=== PATIENT | female | born 1980 | race Caucasian/White ===

== ENCOUNTER 2018-06-07 13:21 | Emergency (ER) | payer OTHER, MEDICAID, SELFPAY ==
[2018-06-07 13:25] VITALS: BP 121/71; PULSE 102; RESP 20; TEMP 36.6; O2SAT 100; BMI 22.3
--- NOTE | 2018-06-07 13:35 | ED.MEDCLEAR ---
HPI - Medical Clearance <ALESSANDRA Rae - Last Filed: 06/07/18 21:34> General Chief complaint: Medical Clearance Stated complaint: NEEDS MEDICAL CLEARANCE FOR DETOX Time Seen by Provider: 06/07/18 13:35 Source: patient Mode of arrival: ambulatory Limitations: no limitations History of Present Illness HPI Narrative: 38-year-old female with history of heroin and meth abuse here for concern of getting medical clearance due for a detox facility in [place]. She reports that she has a bed available and just needs medical clearance. She states the last time she used heroin was last night. She uses methamphetamine day before yes today. She denies any alcohol use. She is an everyday smoker. She denies any medical concerns except for that she may be exposed to Trichomonas from a sexual partner. She reports that she has had whitish vaginal discharge over the past several days. She denies any abdominal pain. No flank pain. No urinary symptoms. She denies any other concerns or complaints this time. She denies any suicidal ideation or homicidal ideation. Home Medications Medication Instructions Recorded Confirmed hydrocodone-acetaminophen 1 tab PO BID #0 11/08/15 sumatriptan succinate 100 mg PO PRN PRN #0 tab 11/08/15 Previous Rx's Medication Instructions Recorded hydroxyzine pamoate [Vistaril] 25 mg PO HS #60 cap 11/08/15 ondansetron HCl 4 mg PO Q8HP PRN #30 tab 11/08/15 risperidone [Risperdal] 1 mg PO QDAY #30 tab 11/08/15 valacyclovir 1,000 mg PO QDAY #30 tab 11/08/15 Allergies Allergy/AdvReac Type Severity Reaction Status Date / Time buspirone [From BUSPAR] Allergy Unknown Unverified 07/23/17 12:35 venlafaxine [From EFFEXOR] Allergy Unknown Unverified 07/23/17 12:35 Review of Systems <ALESSANDRA Rae - Last Filed: 06/07/18 21:34> Review of Systems desires medical clearance for substance abuse detox treatment Constitutional Denies chills, Denies fever(s), Denies lethargy and Denies weakness Eyes Denies change in vision, Denies eye discharge, Denies irritation and Denies loss of vision ENT Ears, Nose, Mouth, and Throat: Denies change in voice, Denies neck pain and Denies sore throat Cardiovascular Denies chest pain, Denies irregular heart rhythm, Denies lightheadedness, Denies palpitations, Denies dyspnea, Denies dyspnea on exertion and Denies orthopnea Respiratory Denies cough, Denies dyspnea, Denies dyspnea on exertion and Denies wheezing Gastrointestinal Gastrointestinal: Denies abdominal pain, Denies change in bowel habits, Denies diarrhea, Denies nausea and Denies vomiting Genitourinary Reports vaginal discharge Comments: Whitish vaginal discharge and possibl Musculoskeletal Denies neck pain Integumentary/Breasts Denies pruritus, Denies erythema, Denies rash and Denies wounds Neurologic Denies confusion, Denies loss of vision and Denies weakness Psychiatric Denies anxiety, Denies confusion, Denies depression, Denies homicidal ideation and Denies suicidal ideation Endocrine Denies palpitations Hematologic/Lymphatic Denies easy bruising Allergic/Immunologic Denies wheezing PFSH <ALESSANDRA Rae - Last Filed: 06/07/18 21:34> Family History Grandfather Age: 78 Cancer Hypertension High cholesterol Grandmother Age: 78 Cancer Hypertension Stroke Grandfather Cancer Hypertension Grandmother Cancer Social History Smoking Status: Current every day smoker Family History Grandfather Age: 78 Cancer Hypertension High cholesterol Grandmother Age: 78 Cancer Hypertension Stroke Grandfather Cancer Hypertension Grandmother Cancer Social History Smoking Status: Current every day smoker Exam <ALESSANDRA Rae - Last Filed: 06/07/18 21:34> Initial Vital Signs Initial Vital Signs: Vital Signs Temperature 97.8 F 06/07/18 13:25 Pulse Rate 102 H 06/07/18 13:25 Respiratory Rate 20 06/07/18 13:25 Blood Pressure 121/71 06/07/18 13:25 Pulse Oximetry 100 06/07/18 13:25 Const General: cooperative and well developed Nutritional Appearance: well nourished Orientation: alert, awake, oriented x3 and not confused HENMT Mouth: oral mucosae normal and moist mucous membranes Eyes Eyelids: eyelids normal Conjunctivae: conjunctivae normal Sclera: sclerae normal Pupils: PERRL EOM: EOM intact bilaterally Resp Effort & Inspection: normal respiratory effort, able to speak in complete sentences, no respiratory distress and no use of accessory muscles Auscultation: clear to auscultation bilaterally, no rales, no rhonchi and no wheezes Cardio Rate: regular rate Rhythm: regular rhythm Heart Sounds: no click, no gallops, no murmurs and no rubs Pulses: normal peripheral pulses General: No CVA tenderness Speculum Exam - Vagina: abnormal vaginal discharge white Speculum Exam - Cervix: normal appearance of the cervix and closed cervix Skin General: no rashes or lesions noted, No jaundice and No petechiae Neuro General: alert, oriented x3, gait normal and no focal motor deficits Speech: speech normal <Wendy Garcia DO - Last Filed: 06/08/18 07:56> Initial Vital Signs Initial Vital Signs: Vital Signs Temperature 97.8 F 06/07/18 13:25 Pulse Rate 102 H 06/07/18 13:25 Respiratory Rate 20 06/07/18 13:25 Blood Pressure 121/71 06/07/18 13:25 Pulse Oximetry 100 06/07/18 13:25 MDM - Medical Clearance <ALESSANDRA Rae - Last Filed: 06/07/18 21:34> Lab Data Result diagrams: 06/07/18 13:48 06/07/18 13:48 Lab Results 06/07/18 06/07/18 06/07/18 Range/Units 13:35 13:35 13:48 WBC 11.8 H (4.5-11.0) X10^3/uL RBC 4.73 (4.0-5.2) X10^6/uL Hgb 13.9 (12.0-16.0) g/dL Hct 41.8 (36-46) % MCV 88.4 (80-100) fL MCH 29.5 (26-34) PG MCHC 33.4 (30-36) % RDW 14.0 (11.6-14.8) % Plt Count 264 (150-400) X10^3/uL Neut % (Auto) 70.3 (50-75) % Lymph % (Auto) 19.8 L (25-40) % [place] % (Auto) 4.3 (3-14) % Eos % (Auto) 4.6 H (2-4) % Baso % (Auto) 1.0 (0-2) % Neut # (Auto) 8300 H (1836-3636) /uL Lymph # (Auto) 2300 (1576-1480) /uL [place] # (Auto) 500 (0-900) /uL Eos # (Auto) 500 H (0-450) /uL Baso # (Auto) 100 (0-100) /uL Sodium (137-145) mmol/L Potassium (3.4-5.1) mmol/L Chloride (98-107) mmol/L Carbon Dioxide (22-32) mmol/L BUN (7-17) mg/dL Creatinine (0.52-1.04) mg/dL Estimated GFR (>60) mL/min BUN/Creatinine Ratio (6-22) Glucose (70-100) mg/dL Calcium (8.4-10.2) mg/dL Total Bilirubin (0.2-1.3) mg/dL AST (14-36) IU/L ALT (9-52) IU/L Alkaline Phosphatase (38-126) U/L Total Protein (6.3-8.2) g/dL Albumin (3.5-5.0) g/dL Globulin (1.7-4.1) g/dL Albumin/Globulin Ratio (1.0-2.8) Urine Color Yellow Urine Appearance Cloudy Urine pH 5.5 (4.5-8.0) Ur Specific [place] 1.025 (1.000-1.035) Urine Protein Trace H (Negative) Urine Glucose (UA) Trace H (Negative) g/dL Urine Ketones Negative (NEGATIVE) Urine Occult Blood Trace-intact (Negative) Urine Nitrate Negative (Negative) Urine Bilirubin Negative (NEGATIVE) Urine Urobilinogen 1.0 (0.2) E.U./dL Ur Leukocyte Esterase 1+ H (NEGATIVE) Urine RBC 1-5/hpf (0-5/HPF) Urine WBC 5-10/hpf H (0-5/HPF) Ur Squamous Epith Cells 10-30 /hpf H Urine Bacteria Few (2-10) H (None) Urine Mucus 1+ H (Negative) Ur Culture Indicated? Cult not indicated Urine Opiates Screen Positive H (Negative) Ur Oxycodone Screen Positive H (Negative) Urine Methadone Screen Negative (Negative) Ur Barbiturates Screen Negative (Negative) U Tricyclic Antidepress Negative (Negative) Ur Phencyclidine Scrn Negative (Negative) Ur Amphetamines Screen Positive H (Negative) U Methamphetamines Scrn Positive H (Negative) Ur MDMA Scrn (Ecstasy) Negative (Negative) U Benzodiazepines Scrn Negative (Negative) Urine Cocaine Screen Negative (Negative) U Marijuana (THC) Screen Positive H (Negative) 06/07/18 Range/Units 13:48 WBC (4.5-11.0) X10^3/uL RBC (4.0-5.2) X10^6/uL Hgb (12.0-16.0) g/dL Hct (36-46) % MCV (80-100) fL MCH (26-34) PG MCHC (30-36) % RDW (11.6-14.8) % Plt Count (150-400) X10^3/uL Neut % (Auto) (50-75) % Lymph % (Auto) (25-40) % [place] % (Auto) (3-14) % Eos % (Auto) (2-4) % Baso % (Auto) (0-2) % Neut # (Auto) (2318-5016) /uL Lymph # (Auto) (2253-7086) /uL [place] # (Auto) (0-900) /uL Eos # (Auto) (0-450) /uL Baso # (Auto) (0-100) /uL Sodium 138 (137-145) mmol/L Potassium 3.5 (3.4-5.1) mmol/L Chloride 99 (98-107) mmol/L Carbon Dioxide 29 (22-32) mmol/L BUN 13 (7-17) mg/dL Creatinine 0.60 (0.52-1.04) mg/dL Estimated GFR > 60.0 (>60) mL/min BUN/Creatinine Ratio 21.7 (6-22) Glucose 113 H (70-100) mg/dL Calcium 9.2 (8.4-10.2) mg/dL Total Bilirubin 0.4 (0.2-1.3) mg/dL AST 193 H (14-36) IU/L ALT 237 H (9-52) IU/L Alkaline Phosphatase 113 (38-126) U/L Total Protein 8.0 (6.3-8.2) g/dL Albumin 4.2 (3.5-5.0) g/dL Globulin 3.8 (1.7-4.1) g/dL Albumin/Globulin Ratio 1.1 (1.0-2.8) Urine Color Urine Appearance Urine pH (4.5-8.0) Ur Specific [place] (1.000-1.035) Urine Protein (Negative) Urine Glucose (UA) (Negative) g/dL Urine Ketones (NEGATIVE) Urine Occult Blood (Negative) Urine Nitrate (Negative) Urine Bilirubin (NEGATIVE) Urine Urobilinogen (0.2) E.U./dL Ur Leukocyte Esterase (NEGATIVE) Urine RBC (0-5/HPF) Urine WBC (0-5/HPF) Ur Squamous Epith Cells Urine Bacteria (None) Urine Mucus (Negative) Ur Culture Indicated? Urine Opiates Screen (Negative) Ur Oxycodone Screen (Negative) Urine Methadone Screen (Negative) Ur Barbiturates Screen (Negative) U Tricyclic Antidepress (Negative) Ur Phencyclidine Scrn (Negative) Ur Amphetamines Screen (Negative) U Methamphetamines Scrn (Negative) Ur MDMA Scrn (Ecstasy) (Negative) U Benzodiazepines Scrn (Negative) Urine Cocaine Screen (Negative) U Marijuana (THC) Screen (Negative) Point of Care Testing Breathalizer 0 MDM Narrative Medical decision making narrative: CBC shows mildly elevated white count of 11.8 K and neutrophils. Chem panel shows elevated AST ALT. will have patient follow up with primary care provider when done with detox for further evaluation of her elevated liver enzymes. Urine tox shows positive for opiates methamphetamine and marijuana. breathalyzer for ETOH was 0. pelvic exam shows whitish discharge and no adnexal tenderness. Wet prep was positive for Trichomonas. GC and chlamydia are pending. She is empirically treated with azithromycin, Rocephin and metronidazole. She is medically cleared for detox treatment. <Wendy Garcia, DO - Last Filed: 06/08/18 07:56> Lab Data Lab Results 06/07/18 06/07/18 06/07/18 Range/Units 13:35 13:35 13:48 WBC 11.8 H (4.5-11.0) X10^3/uL RBC 4.73 (4.0-5.2) X10^6/uL Hgb 13.9 (12.0-16.0) g/dL Hct 41.8 (36-46) % MCV 88.4 (80-100) fL MCH 29.5 (26-34) PG MCHC 33.4 (30-36) % RDW 14.0 (11.6-14.8) % Plt Count 264 (150-400) X10^3/uL Neut % (Auto) 70.3 (50-75) % Lymph % (Auto) 19.8 L (25-40) % [place] % (Auto) 4.3 (3-14) % Eos % (Auto) 4.6 H (2-4) % Baso % (Auto) 1.0 (0-2) % Neut # (Auto) 8300 H (4127-2992) /uL Lymph # (Auto) 2300 (9441-3074) /uL [place] # (Auto) 500 (0-900) /uL Eos # (Auto) 500 H (0-450) /uL Baso # (Auto) 100 (0-100) /uL Sodium (137-145) mmol/L Potassium (3.4-5.1) mmol/L Chloride (98-107) mmol/L Carbon Dioxide (22-32) mmol/L BUN (7-17) mg/dL Creatinine (0.52-1.04) mg/dL Estimated GFR (>60) mL/min BUN/Creatinine Ratio (6-22) Glucose (70-100) mg/dL Calcium (8.4-10.2) mg/dL Total Bilirubin (0.2-1.3) mg/dL AST (14-36) IU/L ALT (9-52) IU/L Alkaline Phosphatase (38-126) U/L Total Protein (6.3-8.2) g/dL Albumin (3.5-5.0) g/dL Globulin (1.7-4.1) g/dL Albumin/Globulin Ratio (1.0-2.8) Urine Color Yellow Urine Appearance Cloudy Urine pH 5.5 (4.5-8.0) Ur Specific [place] 1.025 (1.000-1.035) Urine Protein Trace H (Negative) Urine Glucose (UA) Trace H (Negative) g/dL Urine Ketones Negative (NEGATIVE) Urine Occult Blood Trace-intact (Negative) Urine Nitrate Negative (Negative) Urine Bilirubin Negative (NEGATIVE) Urine Urobilinogen 1.0 (0.2) E.U./dL Ur Leukocyte Esterase 1+ H (NEGATIVE) Urine RBC 1-5/hpf (0-5/HPF) Urine WBC 5-10/hpf H (0-5/HPF) Ur Squamous Epith Cells 10-30 /hpf H Urine Bacteria Few (2-10) H (None) Urine Mucus 1+ H (Negative) Ur Culture Indicated? Cult not indicated Urine Opiates Screen Positive H (Negative) Ur Oxycodone Screen Positive H (Negative) Urine Methadone Screen Negative (Negative) Ur Barbiturates Screen Negative (Negative) U Tricyclic Antidepress Negative (Negative) Ur Phencyclidine Scrn Negative (Negative) Ur Amphetamines Screen Positive H (Negative) U Methamphetamines Scrn Positive H (Negative) Ur MDMA Scrn (Ecstasy) Negative (Negative) U Benzodiazepines Scrn Negative (Negative) Urine Cocaine Screen Negative (Negative) U Marijuana (THC) Screen Positive H (Negative) 06/07/18 Range/Units 13:48 WBC (4.5-11.0) X10^3/uL RBC (4.0-5.2) X10^6/uL Hgb (12.0-16.0) g/dL Hct (36-46) % MCV (80-100) fL MCH (26-34) PG MCHC (30-36) % RDW (11.6-14.8) % Plt Count (150-400) X10^3/uL Neut % (Auto) (50-75) % Lymph % (Auto) (25-40) % [place] % (Auto) (3-14) % Eos % (Auto) (2-4) % Baso % (Auto) (0-2) % Neut # (Auto) (8670-6692) /uL Lymph # (Auto) (8519-6939) /uL [place] # (Auto) (0-900) /uL Eos # (Auto) (0-450) /uL Baso # (Auto) (0-100) /uL Sodium 138 (137-145) mmol/L Potassium 3.5 (3.4-5.1) mmol/L Chloride 99 (98-107) mmol/L Carbon Dioxide 29 (22-32) mmol/L BUN 13 (7-17) mg/dL Creatinine 0.60 (0.52-1.04) mg/dL Estimated GFR > 60.0 (>60) mL/min BUN/Creatinine Ratio 21.7 (6-22) Glucose 113 H (70-100) mg/dL Calcium 9.2 (8.4-10.2) mg/dL Total Bilirubin 0.4 (0.2-1.3) mg/dL AST 193 H (14-36) IU/L ALT 237 H (9-52) IU/L Alkaline Phosphatase 113 (38-126) U/L Total Protein 8.0 (6.3-8.2) g/dL Albumin 4.2 (3.5-5.0) g/dL Globulin 3.8 (1.7-4.1) g/dL Albumin/Globulin Ratio 1.1 (1.0-2.8) Urine Color Urine Appearance Urine pH (4.5-8.0) Ur Specific [place] (1.000-1.035) Urine Protein (Negative) Urine Glucose (UA) (Negative) g/dL Urine Ketones (NEGATIVE) Urine Occult Blood (Negative) Urine Nitrate (Negative) Urine Bilirubin (NEGATIVE) Urine Urobilinogen (0.2) E.U./dL Ur Leukocyte Esterase (NEGATIVE) Urine RBC (0-5/HPF) Urine WBC (0-5/HPF) Ur Squamous Epith Cells Urine Bacteria (None) Urine Mucus (Negative) Ur Culture Indicated? Urine Opiates Screen (Negative) Ur Oxycodone Screen (Negative) Urine Methadone Screen (Negative) Ur Barbiturates Screen (Negative) U Tricyclic Antidepress (Negative) Ur Phencyclidine Scrn (Negative) Ur Amphetamines Screen (Negative) U Methamphetamines Scrn (Negative) Ur MDMA Scrn (Ecstasy) (Negative) U Benzodiazepines Scrn (Negative) Urine Cocaine Screen (Negative) U Marijuana (THC) Screen (Negative) Point of Care Testing Breathalizer 0 Discharge Plan Departure Patient Disposition: Home Clinical Impression: Medical clearance for psychiatric admission, Trichomonas vaginitis Discharge Date/Time: 06/07/18 16:05 Interventions: ED Discharge Assessment Last Done: 06/07/18 16:05 Instructions: Facts About Sexually Transmitted Infections Activity Restrictions/Additional Instructions: laboratory results show mildly elevated white count today and also neutrophils this may be due to virus or even the Trichomonas as Trichomonas was positive today. You were treated empirically for Trichomonas and chlamydia/gonorrhea. Chlamydia and gonorrhea results are pending. laboratory results indicated elevated liver enzymes today Otherwise laboratory results today were unremarkable. You are medically cleared for medical detox treatment. Follow up with primary care provider When completed detox for further evaluation of elevated liver enzymes. For any worsening symptoms return emergency room. Prescriptions: No Action sumatriptan succinate 100 MG tablet 100 mg PO PRN PRNQty: 0 RF: 0 hydrocodone-acetaminophen 5 MG/325 MG tablet 1 tab PO BID Qty: 0 RF: 0 valacyclovir 1,000 MG tablet 1,000 mg PO QDAY Qty: 30 RF: 3 ondansetron HCl 4 MG tablet 4 mg PO Q8HP PRNQty: 30 RF: 1 risperidone [Risperdal] 1 MG tablet 1 mg PO QDAY Qty: 30 RF: 3 hydroxyzine pamoate [Vistaril] 25 MG capsule 25 mg PO HS Qty: 60 RF: 3 Referrals: [facility] [Provider Group] <Wendy Garcia DO - Last Filed: 06/08/18 07:56> Cosign ED Attending Jacque Attestation: I was immediately available in the department for consultation. Documentation has been reviewed. I agree with assessment and plan.
[2018-06-07 14:03] LABS: Add Manual Diff / Slide Review NO; Basophils Absolute Auto 100 /uL (0-100); Eosinophils Absolute Auto 500 /uL (0-450); Eosinophils Percent Auto 4.6 % (2-4); Hematocrit 41.8 % (36-46); Hemoglobin 13.9 g/dL (12.0-16.0); Lymphocytes Absolute Auto 2300 /uL (1100-4500); Lymphocytes Percent Auto 19.8 % (25-40); Mean Corpuscular HGB Conc 33.4 % (30-36); Mean Corpuscular Hemoglobin 29.5 PG (26-34); Mean Corpuscular Volume 88.4 fL (80-100); Monocytes Absolute Auto 500 /uL (0-900); Monocytes Percent Auto 4.3 % (3-14); Neutrophils Absolute Auto 8300 /uL (1500-7000); Neutrophils Percent Auto 70.3 % (50-75); Platelet Count 264 X10^3/uL (150-400); Red Blood Cell Count 4.73 X10^6/uL (4.0-5.2); White Blood Cell Count 11.8 X10^3/uL (4.5-11.0)
[2018-06-07 14:08] LABS: Alanine Aminotransferase 237 IU/L (9-52); Albumin 4.2 g/dL (3.5-5.0); Albumin Globulin Ratio 1.1 (1.0-2.8); Alkaline Phosphatase 113 U/L (38-126); Aspartate Aminotransferase 193 IU/L (14-36); BUN Creatinine Ratio 21.7 (6-22); Bilirubin Total 0.4 mg/dL (0.2-1.3); Blood Urea Nitrogen 13 mg/dL (7-17); Calcium 9.2 mg/dL (8.4-10.2); Carbon Dioxide 29 mmol/L (22-32); Chloride 99 mmol/L (98-107); Estimated Glomerular Filt Rate > 60.0 mL/min (>60); Globulin 3.8 g/dL (1.7-4.1); Glucose 113 mg/dL (70-100); HEMOLYSIS < 15 (0-50); Potassium 3.5 mmol/L (3.4-5.1); Sodium 138 mmol/L (137-145)
[2018-06-07 14:55] LABS: Appearance Urine UA CLOUDY; Bilirubin Urine UA NEGATIVE (NEGATIVE); Color Urine UA YELLOW; Glucose Urine UA TRACE g/dL (Negative); Ketones Urine UA NEGATIVE (NEGATIVE); Leukocyte Esterase Urine UA 1+ (NEGATIVE); Nitrite Urine UA NEGATIVE (Negative); Occult Blood Urine UA TRACE-INTACT (Negative); Protein Urine UA TRACE (Negative); Specific Gravity Urine UA 1.025 (1.000-1.035); pH Urine UA 5.5 (4.5-8.0)
[2018-06-07 14:59] LABS: RBC Urine 1-5/HPF (0-5/HPF); Squamous Epithelial Cell Urine 10-30 /HPF; WBC Urine 5-10/HPF (0-5/HPF)
[2018-06-07 15:00] LABS: Bacteria Urine Few (2-10); Culture Indicated Urine Cult Not Indicated; Mucus Urine 1+ (Negative)
[2018-06-07 15:01] LABS: Urine Amphetamines Positive (Negative); Urine Barbiturates Negative (Negative); Urine Benzodiazepines Negative (Negative); Urine Cocaine Negative (Negative); Urine MDMA Negative (Negative); Urine Methadone Negative (Negative); Urine Methamphetamines Positive (Negative); Urine Morphine/Opi cutoff 2000 Positive (Negative); Urine Oxycodone Positive (Negative); Urine Phencyclidine Negative (Negative); Urine Tetrahydrocannabinol Positive (Negative); Urine Tricyclic Antidepressant Negative (Negative)
[2018-06-07] MEDS: AZITHROMYCIN 250 MG TABLET 1000 MG PO (15:59)
[2018-06-07] MEDS: cefTRIAXone 500 MG VIAL 250 MG IM (16:00)
[2018-06-07] MEDS: metroNIDAZOLE 500 MG TABLET 2000 MG PO (16:01)
[2018-06-07 16:05] VITALS: BP 114/70; PULSE 95; RESP 20; O2SAT 99
== END 2018-06-07 16:05 | disposition home or self-care (01) ==
PROVIDERS: Emergency Provider Nurse Practitioner Family
DX: A59.01 Trichomonal vulvovaginitis (principal); Z00.8 Encounter for other general examination
CPT/HCPCS: 80053; 80305; 81001; 82075; 85025; 87070; 87077; 87205; 87210; 87491; 87591; 96372; 99283; J0696

== ENCOUNTER 2018-08-27 11:05 | Observation (INO) | payer OTHER, MEDICAID, SELFPAY ==
[2018-08-27 11:10] VITALS: BP 105/68; PULSE 112; RESP 18; TEMP 37; O2SAT 96
--- NOTE | 2018-08-27 11:39 | ED.SKABFB ---
HPI - Skin/Abscess/Foreign Bdy General Chief complaint: Skin/Abscess/Foreign Body Stated complaint: SWELLING IN ARM AND FACE Time Seen by Provider: 08/27/18 11:35 Source: patient Mode of arrival: ambulatory Limitations: no limitations History of Present Illness HPI narrative: Patient is a 38-year-old female who presents with left-sided facial swelling and left abscess on her arm. She states it started 3 days ago. She has a history of IVDA but states she has not used in 3 months. She was helping somebody move and thinks there were spiders. The abscess on her left arm started draining this morning. The 1 on her face she says started off as a pimple that she popped. Actually does not have significant erythema on her face is more swelling. MD complaint: abscess/boil Location: face and LUE Severity: moderate Relieving factors: none Exacerbating factors: none Context: IVDA (Clean for 3 months-per patient) Related Data Home Medications Medication Instructions Recorded Confirmed bupropion HCl 75 mg PO DAILY 08/27/18 08/27/18 doxepin 100 mg PO QPM 08/27/18 08/27/18 Allergies Allergy/AdvReac Type Severity Reaction Status Date / Time buspirone [From BUSPAR] Allergy Unknown Unverified 07/23/17 12:35 venlafaxine [From EFFEXOR] Allergy Unknown Unverified 07/23/17 12:35 Review of Systems Review of Systems ROS Unobtainable: All systems reviewed & are unremarkable except as noted in HPI and below Eyes Denies change in vision, Denies eye discharge, Denies irritation and Denies loss of vision ENT Ears, Nose, Mouth, and Throat: Reports as per HPI, Denies lip swelling, Denies throat swelling and Denies tongue swelling Cardiovascular Denies chest pain, Denies irregular heart rhythm, Denies lightheadedness, Denies palpitations, Denies dyspnea, Denies dyspnea on exertion and Denies orthopnea Respiratory Denies cough, Denies dyspnea, Denies dyspnea on exertion and Denies wheezing Gastrointestinal Gastrointestinal: Denies abdominal pain, Denies change in bowel habits, Denies diarrhea, Denies nausea and Denies vomiting Genitourinary Denies hematuria, Denies flank pain, Denies urinary incontinence and Denies urinary urgency Musculoskeletal Denies back pain, Denies muscle weakness, Denies numbness and Denies tingling Integumentary/Breasts Denies pruritus, Reports erythema, Denies rash, Reports skin swelling (Left cheek) and Reports wounds Neurologic Denies loss of vision, Denies numbness and Denies tingling Endocrine Denies palpitations Allergic/Immunologic Denies lip swelling, Denies throat swelling, Denies tongue swelling and Denies wheezing FORMERLY [facility] Medical History 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) Family History (Updated 11/07/15 @ 00:00 by Conversion Provider) Grandfather Age: 78 Cancer Hypertension High cholesterol Grandmother Age: 78 Cancer Hypertension Stroke Grandfather Cancer Hypertension Grandmother Cancer Social History (Updated 08/27/18 @ 11:46 by Wendy Garcia DO) Smoking Status: Current every day smoker substance use type: former substance user, heroin, IV drugs and methamphetamine Family History Grandfather Age: 78 Cancer Hypertension High cholesterol Grandmother Age: 78 Cancer Hypertension Stroke Grandfather Cancer Hypertension Grandmother Cancer Social History household members: friend(s) Smoking Status: Current every day smoker substance use type: former substance user, heroin, IV drugs and methamphetamine Exam Initial Vital Signs Initial Vital Signs: Vital Signs Temperature 98.6 F 08/27/18 11:10 Pulse Rate 112 H 08/27/18 11:10 Respiratory Rate 18 08/27/18 11:10 Blood Pressure 105/68 08/27/18 11:10 Pulse Oximetry 96 08/27/18 11:10 GENERAL: Well-appearing, well-nourished and in no acute distress. HEENT: Head atraumatic,EOMI, pupils reactive, 1 cm area of erythema on left under chin. But significant swelling of left cheek no erythema CARDIOVASCULAR: Regular rate and rhythm without murmurs, rubs or gallops. RESPIRATORY: Breath sounds equal bilaterally, no wheezes rales or rhonchi. ABDOMEN: Soft, nontender. Normoactive bowel sounds all 4 quadrants. No guarding or rebound. EXTREMITIES: Normal range of motion, no clubbing or edema. Neurovascularly intact NEUROLOGICAL: Alert and oriented x4.Normal gait and speech. Cranial nerves II through XII grossly intact. SKIN: Left forearm abscess 2 cm x 2 cm without 1 cm induration no streaking gross pus. Multiple track gray mostly on right arm Skin Adult Head Chin: 1. Erythema no significant fluctuation 2. Swelling no erythema Procedures Abscess I/D Site: upper extremity Side (if applicable): left Local Anesthetic: lidocaine 1% Amount of anesthesia used (mL): 3 Technique: incised with #11 blade Amount of fluid expressed (mL): 1 Irrigation: No Packing used?: none Complications: pain and bleeding Course Orders Ordered: ED Orders 08/27/18 11:40 CT facial bones w con Stat 08/27/18 11:42 Complete Blood Count AUTO DIFF Stat Comprehensive Metabolic Panel Stat Lactate (Lactic Acid) Stat Procalcitonin Stat 08/27/18 13:20 Blood Culture Stat 08/27/18 14:19 Wound Culture and Gram Stain Stat Wound Culture and Gram Stain Stat 08/27/18 15:12 Consult to Pastoral Services Routine Sodium Chloride (Normal Saline 0.9%) 1,000 mls @ 200 mls/hr IV CONT DEANNA Last Admin: 08/27/18 12:02 Dose: 200 mls/hr Discontinued Medications Vancomycin HCl/Dextrose (Vancomycin) 1,000 mg in 200 mls @ 200 mls/hr IV NOW ONE Stop: 08/27/18 14:02 Last Admin: 08/27/18 13:51 Dose: 200 mls/hr Ampicillin Sodium/Sulbactam (Sodium 3 gm/ Sodium Chloride) 100 mls @ 100 mls/hr IV NOW ONE Stop: 08/27/18 13:43 Ketorolac Tromethamine (Toradol) 30 mg IV NOW ONE Stop: 08/27/18 13:46 Last Admin: 08/27/18 13:52 Dose: 30 mg Vital Signs - 8 hr 08/27/18 11:10 08/27/18 12:11 08/27/18 13:30 Temperature 98.6 F Pulse Rate 112 H 88 92 H Respiratory Rate 18 14 23 Blood Pressure 105/68 Blood Pressure [Right Arm] 100/66 105/66 Pulse Oximetry 96 97 99 08/27/18 14:04 08/27/18 14:48 Temperature 97.8 F Pulse Rate 87 86 Respiratory Rate 23 16 Blood Pressure 108/66 Blood Pressure [Right Arm] 114/72 Pulse Oximetry 100 99 MDM - Skin/Abscess/Foreign Bdy Lab Data Attestation: I reviewed the patient's lab results. Result diagrams: 08/27/18 11:42 08/27/18 11:42 Lab Results 08/27/18 08/27/18 08/27/18 Range/Units 11:42 11:42 11:42 WBC 10.3 (4.5-11.0) X10^3/uL RBC 4.69 (4.0-5.2) X10^6/uL Hgb 13.9 (12.0-16.0) g/dL Hct 41.2 (36-46) % MCV 87.8 (80-100) fL MCH 29.7 (26-34) PG MCHC 33.8 (30-36) % RDW 13.5 (11.6-14.8) % Plt Count 250 (150-400) X10^3/uL Neut % (Auto) 79.1 H (50-75) % Lymph % (Auto) 11.8 L (25-40) % [place] % (Auto) 7.5 (3-14) % Eos % (Auto) 1.2 L (2-4) % Baso % (Auto) 0.4 (0-2) % Neut # (Auto) 8100 H (9384-7828) /uL Lymph # (Auto) 1200 (6886-6508) /uL [place] # (Auto) 800 (0-900) /uL Eos # (Auto) 100 (0-450) /uL Baso # (Auto) 0 (0-100) /uL Sodium 134 L (137-145) mmol/L Potassium 3.9 (3.4-5.1) mmol/L Chloride 95 L (98-107) mmol/L Carbon Dioxide 31 (22-32) mmol/L BUN 9 (7-17) mg/dL Creatinine 0.50 L (0.52-1.04) mg/dL Estimated GFR > 60.0 (>60) mL/min BUN/Creatinine Ratio 18.0 (6-22) Glucose 110 H (70-100) mg/dL Lactate (0.7-2.1) mmol/L Calcium 9.0 (8.4-10.2) mg/dL Total Bilirubin 1.3 (0.2-1.3) mg/dL AST 119 H (14-36) IU/L ALT 195 H (9-52) IU/L Alkaline Phosphatase 90 (38-126) U/L Total Protein 7.2 (6.3-8.2) g/dL Albumin 3.8 (3.5-5.0) g/dL Globulin 3.4 (1.7-4.1) g/dL Albumin/Globulin Ratio 1.1 (1.0-2.8) Procalcitonin < 0.05 (<0.5) ng/mL 08/27/18 Range/Units 11:42 WBC (4.5-11.0) X10^3/uL RBC (4.0-5.2) X10^6/uL Hgb (12.0-16.0) g/dL Hct (36-46) % MCV (80-100) fL MCH (26-34) PG MCHC (30-36) % RDW (11.6-14.8) % Plt Count (150-400) X10^3/uL Neut % (Auto) (50-75) % Lymph % (Auto) (25-40) % [place] % (Auto) (3-14) % Eos % (Auto) (2-4) % Baso % (Auto) (0-2) % Neut # (Auto) (1562-8512) /uL Lymph # (Auto) (0913-8287) /uL [place] # (Auto) (0-900) /uL Eos # (Auto) (0-450) /uL Baso # (Auto) (0-100) /uL Sodium (137-145) mmol/L Potassium (3.4-5.1) mmol/L Chloride (98-107) mmol/L Carbon Dioxide (22-32) mmol/L BUN (7-17) mg/dL Creatinine (0.52-1.04) mg/dL Estimated GFR (>60) mL/min BUN/Creatinine Ratio (6-22) Glucose (70-100) mg/dL Lactate 1.0 (0.7-2.1) mmol/L Calcium (8.4-10.2) mg/dL Total Bilirubin (0.2-1.3) mg/dL AST (14-36) IU/L ALT (9-52) IU/L Alkaline Phosphatase (38-126) U/L Total Protein (6.3-8.2) g/dL Albumin (3.5-5.0) g/dL Globulin (1.7-4.1) g/dL Albumin/Globulin Ratio (1.0-2.8) Procalcitonin (<0.5) ng/mL Imaging Data CT face: Radiologist's impression: PROCEDURE: CT FACIAL BONES W CON INDICATIONS: left facial swelling. TECHNIQUE: After the administration of intravenous contrast, 2.5 mm axial sections acquired from the mid-neck to the frontal sinuses, with coronal and sagittal reformats. For radiation dose reduction, the following was used: automated exposure control, adjustment of mA and/or kV according to patient size. COMPARISON: None. FINDINGS: Image quality: Excellent. Soft tissues: There is soft tissue edema and skin thickening involving the left pre-mandible and premaxillary area, consistent with cellulitis. No subcutaneous mass or fluid collections. Prominent sublingual/submandibular lymph nodes are likely reactive. Vascular: Visualized vascular structures appear patent throughout. Bony vascular foramina and canals appear normal. Bones: Facial bones appear intact, without fractures, erosions, or destruction. Visualized portions of the skull base and auditory canals also appear normal. Sinuses: Paranasal sinuses are aerated without fluid levels, mucosal thickening, or mucoceles. Mastoid air cells are aerated. IMPRESSION: 1. Left pre-mandible/premaxillary soft tissue edema and skin thickening consistent with cellulitis. No subcutaneous mass or fluid collections. 2. Reactive subchondral/submandibular lymphadenopathy. Dictated by: Orestes Barrera M.D. on 08/27/2018 at 12:38 MDM Narrative Medical decision making narrative: Patient has significant swelling of the left side of her face which has come on suddenly over the last 3 days. She has no airway compromise. She really has no erythema there is no abscess according to CT. She is high risk due to history of IVDA. Her left arm abscess seems already drained I did not actually get much as purulence discharge from it. Due to significant facial swelling and feel that patient needs to be admitted for IV antibiotics. She does not appear septic she has a normal lactic acid minimally elevated leukocytosis. Dr. Child accepts patient Discharge Plan Departure Patient Disposition: Admitted As Inpatient Clinical Impression: Cellulitis of face Discharge Date/Time: 08/27/18 14:39 Interventions: ED Discharge Assessment Last Done: 08/27/18 14:39 Admit Date/Time: 08/27/18 14:26 Admit Provider: Nadiya Child
[2018-08-27] MEDS: SODIUM CHLORIDE 0.9% 1,000 ML 200 ML IV ×2 (12:02→19:29)
[2018-08-27 12:03] LABS: Add Manual Diff / Slide Review NO; Basophils Absolute Auto 0 /uL (0-100); Basophils Percent Auto 0.4 % (0-2); Eosinophils Absolute Auto 100 /uL (0-450); Eosinophils Percent Auto 1.2 % (2-4); Hematocrit 41.2 % (36-46); Hemoglobin 13.9 g/dL (12.0-16.0); Lymphocytes Absolute Auto 1200 /uL (1100-4500); Lymphocytes Percent Auto 11.8 % (25-40); Mean Corpuscular HGB Conc 33.8 % (30-36); Mean Corpuscular Hemoglobin 29.7 PG (26-34); Mean Corpuscular Volume 87.8 fL (80-100); Monocytes Absolute Auto 800 /uL (0-900); Monocytes Percent Auto 7.5 % (3-14); Neutrophils Absolute Auto 8100 /uL (1500-7000); Neutrophils Percent Auto 79.1 % (50-75); Platelet Count 250 X10^3/uL (150-400); Red Blood Cell Count 4.69 X10^6/uL (4.0-5.2); Red Cell Distribution Width 13.5 % (11.6-14.8); White Blood Cell Count 10.3 X10^3/uL (4.5-11.0)
[2018-08-27 12:10] LABS: Alanine Aminotransferase 195 IU/L (9-52); Albumin 3.8 g/dL (3.5-5.0); Albumin Globulin Ratio 1.1 (1.0-2.8); Alkaline Phosphatase 90 U/L (38-126); Aspartate Aminotransferase 119 IU/L (14-36); Bilirubin Total 1.3 mg/dL (0.2-1.3); Blood Urea Nitrogen 9 mg/dL (7-17); Carbon Dioxide 31 mmol/L (22-32); Chloride 95 mmol/L (98-107); Estimated Glomerular Filt Rate > 60.0 mL/min (>60); Globulin 3.4 g/dL (1.7-4.1); Glucose 110 mg/dL (70-100); HEMOLYSIS < 15 (0-50); Potassium 3.9 mmol/L (3.4-5.1); Sodium 134 mmol/L (137-145); Total Protein 7.2 g/dL (6.3-8.2)
[2018-08-27 12:11] VITALS: BP 100/66; PULSE 88; RESP 14; O2SAT 97
[2018-08-27 12:30] LABS: Procalcitonin < 0.05 ng/mL (<0.5)
[2018-08-27 13:30] VITALS: BP 105/66; PULSE 92; RESP 23; O2SAT 99
[2018-08-27] MEDS: VANCOMYCIN 1,000 MG/200 ML FROZ.PIGGY 200 MG IV (13:51)
[2018-08-27] MEDS: KETOROLAC 60 MG/2 ML VIAL 30 MG IV (13:52)
[2018-08-27 14:04] VITALS: BP 114/72; PULSE 84; PULSE 87; RESP 20; RESP 23; O2SAT 100
[2018-08-27 14:48] VITALS: BP 108/66; PULSE 86; RESP 16; TEMP 36.6; O2SAT 99; BMI 23.1
--- NOTE | 2018-08-27 15:29 | PC.ADMIT ---
[address] Admission Note: The patient,Stacy Mary,38 y/o, was given written information regarding hospital policies, unit procedures and contact persons. Patient's smoking status: Current every day smoker. Vital Signs - 8 hr 08/27/18 11:10 08/27/18 12:11 08/27/18 13:30 Temperature 98.6 F Pulse Rate 112 H 88 92 H Respiratory Rate 18 14 23 Blood Pressure 105/68 Blood Pressure [Right Arm] 100/66 105/66 Pulse Oximetry 96 97 99 08/27/18 14:04 08/27/18 14:48 Temperature 97.8 F Pulse Rate 87 86 Respiratory Rate 23 16 Blood Pressure 108/66 Blood Pressure [Right Arm] 114/72 Pulse Oximetry 100 99 patient to unit; vss. answers questions appropriately. oriented to room. iv abx infusing; started in er. patient's mother accompanies her. slightly drowsy. oriented to call light system. report given to MARIA D Foster
[2018-08-27] MEDS: AMPICILLIN/SULBACTAM 3 GM 3 GM in SODIUM CHLORIDE 0.9% 100 ML IV (15:47)
--- NOTE | 2018-08-27 16:10 | PC.NURSE ---
Addendum entered by Kristin Caballero R.N. 08/27/18 22:52: Minimal pain relief to left forearm and left cheek/jaw per pt following administration of vicodin and tylenol. Administered 2 mg iv morphine. Pt has ice to sites intermittently. Vancomycin infusing without difficulty to right hand iv site. Awaiting collection of urine. Addendum entered by Kristin Caballero R.N. 08/27/18 19:08: Awake, alert taking diet slowly. Significant edema left jaw/cheek. Pt rates pain 7/10. Edema to left arm with dime sized open area posterior aspect. Dr. Child has removed dressing per pt statement. Cleansed area with normal saline and dried and applied small allevyn gentle border dressing to site. Original Note: Pt requests pain medications. Dr. Child in to see patient and this was addressed with .
--- NOTE | 2018-08-27 16:46 | P.HP_ITS ---
History of Present Illness Date Patient Seen: 08/27/18 Chief complaint: SWELLING IN ARM AND FACE Narrative: The patient is a 38-year-old female with a history of IV substance abuse who was in her usual state of health until about 3 days ago. The patient had a facial pimple which she expressed pus from. However the left side of her face started swelling and became tender. In addition she developed an abscess o eusebio the left forearm. She denies injecting into the forearm. She states she went in to drug rehabilitation about 6 months ago and has been clean since that time. The patient had nausea and vomiting. She denies any fever. She was seen in the emergency room where the abscess of the left arm was drained. She underwent a CT scan of the face which showed no collection of pus or drainable fluid collection. The left face was swollen and felt to be consistent with cellulitis. Patient was admitted to the hospital for further evaluation. She was given IV Vanco in the emergency department and added Unasyn to her regimen as well. Cultures were sent from the emergency department. Patient is admitted for further evaluation. Patient History Medical History (Updated 08/27/18 @ 16:46 by Nadiya Child MD) 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) Neurofibromatosis (Acute) Family History Grandfather Age: 78 Cancer Hypertension High cholesterol Grandmother Age: 78 Cancer Hypertension Stroke Grandfather Cancer Hypertension Grandmother Cancer Social History household members: friend(s) Smoking Status: Current every day smoker substance use type: former substance user, heroin, IV drugs and methamphetamine Family & Social History Family History Grandfather Age: 78 Cancer Hypertension High cholesterol Grandmother Age: 78 Cancer Hypertension Stroke Grandfather Cancer Hypertension Grandmother Cancer Social History: household members friend(s) Prior Living Arrangements Apartment/Condo Safety & Behavioral: Feels Safe in Current Yes Environment Been Physically Hurt or No Threatened By a Person Suicidal Ideation Description None Suicide Plan Description No Plan Tobacco & Substance use: Smoking Status Current every day smoker alcohol intake frequency 0-2 drinks per day Substance Use Type heroin,amphetamines Meds Home Medications Medication Instructions Recorded Confirmed Type bupropion HCl 75 mg PO DAILY 08/27/18 08/27/18 History doxepin 100 mg PO QPM 08/27/18 08/27/18 History Allergies Allergy/AdvReac Type Severity Reaction Status Date / Time buspirone [From BUSPAR] Allergy Unknown Unverified 07/23/17 12:35 venlafaxine [From EFFEXOR] Allergy Unknown Unverified 07/23/17 12:35 Review of Systems Review of Systems Patient has a history of neurofibromatosis. She also reports some swelling in her feet which is improved. She had nausea and vomiting earlier. But no hematemesis or melena. She denies any dysuria hematuria or pyuria. She reports a mild headache. She has no shortness of breath or chest pain. Further review of systems is negative Exam Vital Signs (past 8 hours): - 08/27/18 11:10 08/27/18 12:11 08/27/18 13:30 Temperature 98.6 F Pulse Rate 112 H 88 92 H Respiratory Rate 18 14 23 Blood Pressure 105/68 Blood Pressure [Right Arm] 100/66 105/66 Pulse Oximetry 96 97 99 08/27/18 14:04 08/27/18 14:48 Temperature 97.8 F Pulse Rate 87 86 Respiratory Rate 23 16 Blood Pressure 108/66 Blood Pressure [Right Arm] 114/72 Pulse Oximetry 100 99 Oxygen Delivery Method Room Air Narrative Exam Narrative: Pleasant ill-appearing female HEENT: Normocephalic, left face is swollen, tender to palpation, there is a open area on the lower chin. There is no fluctuance S, no erythema, no expressible fluid. Her oropharynx is clear. Her neck is supple Lungs: Clear to auscultation Cardiac exam: Regular rate and rhythm normal S1 and S2 Abdomen: Soft nontender nondistended Extremities: Lower extremities no edema, left upper extremity reveals an open area that has been drained with erythema around Neuro exam: Nonfocal Objective Labs Result Diagrams: 08/27/18 11:42 08/27/18 11:42 Labs: Laboratory Results - last 24 hr 08/27/18 08/27/18 08/27/18 11:42 11:42 11:42 WBC 10.3 RBC 4.69 Hgb 13.9 Hct 41.2 MCV 87.8 MCH 29.7 MCHC 33.8 RDW 13.5 Plt Count 250 Neut % (Auto) 79.1 H Lymph % (Auto) 11.8 L [place] % (Auto) 7.5 Eos % (Auto) 1.2 L Baso % (Auto) 0.4 Neut # (Auto) 8100 H Lymph # (Auto) 1200 [place] # (Auto) 800 Eos # (Auto) 100 Baso # (Auto) 0 Sodium 134 L Potassium 3.9 Chloride 95 L Carbon Dioxide 31 BUN 9 Creatinine 0.50 L Estimated GFR > 60.0 BUN/Creatinine Ratio 18.0 Glucose 110 H Lactate Calcium 9.0 Total Bilirubin 1.3 AST 119 H ALT 195 H Alkaline Phosphatase 90 Total Protein 7.2 Albumin 3.8 Globulin 3.4 Albumin/Globulin Ratio 1.1 Procalcitonin < 0.05 08/27/18 11:42 WBC RBC Hgb Hct MCV MCH MCHC RDW Plt Count Neut % (Auto) Lymph % (Auto) [place] % (Auto) Eos % (Auto) Baso % (Auto) Neut # (Auto) Lymph # (Auto) [place] # (Auto) Eos # (Auto) Baso # (Auto) Sodium Potassium Chloride Carbon Dioxide BUN Creatinine Estimated GFR BUN/Creatinine Ratio Glucose Lactate 1.0 Calcium Total Bilirubin AST ALT Alkaline Phosphatase Total Protein Albumin Globulin Albumin/Globulin Ratio Procalcitonin Assessment & Plan (1) Cellulitis of face: Problem details: Will continue IV vancomycin, and IV Unasyn. Pharmacy to manage her Vanco. Will await culture and adjust antibiotics accordingly. Patient is receiving pain medication for her abscesses. This was present on admission Current visit: Yes Status: Acute (2) Abscess of left arm: Problem details: Patient with left arm abscess status post I&D, present on admission continue daily dressing Current visit: Yes Status: Acute (3) Tobacco dependence: Problem details: Nicotine patch. Current visit: Yes Status: Acute Quality VTE Deep Vein Thrombosis/Pulmonary Embolism Present on Admission: No
[2018-08-27] MEDS: buPROPion XL 150 MG TAB 75 MG PO (17:58)
[2018-08-27] MEDS: HYDROCODONE/ACET 5/325 TABLET 1 TAB PO ×2 (17:58→21:34)
[2018-08-27] MEDS: NICOTINE 7 MG PATCH TOP (17:59)
[2018-08-27 20:53] VITALS: BP 97/63; PULSE 91; RESP 16; TEMP 37.1; O2SAT 99
[2018-08-27] MEDS: DOXEPIN 25 MG CAPSULE 100 MG PO (21:05)
[2018-08-27] MEDS: VANCOMYCIN 300 ML 200 MG IV (21:05)
[2018-08-27] MEDS: ACETAMINOPHEN 325 MG TABLET 650 MG PO (21:33)
[2018-08-27] MEDS: MORPHINE 2 MG/ML INJ IV (22:24)
[2018-08-28] VITALS (8 sets, daily range): BP systolic 97–136; BP diastolic 53–67; PULSE 87–105; RESP 14–20; TEMP 36.3–37.1; O2SAT 96–100
--- NOTE | 2018-08-28 | DI.US.S_ITS ---
PROCEDURE: US ABDOMEN LIMITED INDICATIONS: ELEV LFT'S TECHNIQUE: Real-time focused scanning was performed of the abdomen, with image documentation. COMPARISON: None. FINDINGS: Liver has normal echotexture. Liver is normal in size. No focal hepatic mass lesions. Gallstones noted in the gallbladder lumen. There is mild gallbladder wall thickening to 4.2 mm. No pericholecystic fluid. No sonographic Valladares sign reported. Common bile duct is nondilated measuring 5.9 mm. Pancreas are sonographically normal. Incidental note made of a right renal cyst. IMPRESSION: 1. Cholelithiasis with gallbladder wall thickening. Developing acute cholecystitis cannot be excluded. Please correlate with clinical data. 2. No biliary obstruction. 3. Liver is sonographically normal. Dictated by: Yasmeen Nagy MD, PhD on 08/28/2018 at 17:56 Approved by: Yasmeen Nagy MD, PhD on 08/28/2018 at 17:58
[2018-08-28] MEDS: AMPICILLIN/SULBACTAM 3 GM 3 GM in SODIUM CHLORIDE 0.9% 100 ML IV ×2 (00:16→07:01)
[2018-08-28] MEDS: SODIUM CHLORIDE 0.9% 1,000 ML 200 ML IV ×4 (03:45→22:02)
[2018-08-28] MEDS: VANCOMYCIN 300 ML 200 MG IV ×2 (05:35→14:19)
[2018-08-28 06:14] LABS: Add Manual Diff / Slide Review NO; Basophils Absolute Auto 0 /uL (0-100); Basophils Percent Auto 0.6 % (0-2); Eosinophils Absolute Auto 400 /uL (0-450); Eosinophils Percent Auto 5.3 % (2-4); Hematocrit 38.1 % (36-46); Hemoglobin 12.9 g/dL (12.0-16.0); Lymphocytes Absolute Auto 1700 /uL (1100-4500); Lymphocytes Percent Auto 21.9 % (25-40); Mean Corpuscular Hemoglobin 29.8 PG (26-34); Mean Corpuscular Volume 87.7 fL (80-100); Monocytes Absolute Auto 600 /uL (0-900); Monocytes Percent Auto 7.7 % (3-14); Neutrophils Absolute Auto 4900 /uL (1500-7000); Neutrophils Percent Auto 64.5 % (50-75); Platelet Count 225 X10^3/uL (150-400); Red Blood Cell Count 4.34 X10^6/uL (4.0-5.2); Red Cell Distribution Width 13.9 % (11.6-14.8); White Blood Cell Count 7.6 X10^3/uL (4.5-11.0)
[2018-08-28 06:25] LABS: Blood Urea Nitrogen 11 mg/dL (7-17); Calcium 8.1 mg/dL (8.4-10.2); Carbon Dioxide 27 mmol/L (22-32); Chloride 105 mmol/L (98-107); Estimated Glomerular Filt Rate > 60.0 mL/min (>60); Glucose 102 mg/dL (70-100); HEMOLYSIS < 15 (0-50); Potassium 3.6 mmol/L (3.4-5.1); Sodium 137 mmol/L (137-145)
--- NOTE | 2018-08-28 08:59 | CM.DANOTE ---
Discharge Planning/Care Management DCP: assessment: case received, EMR reviewed and included the ER report from Jun 07 2018. Met briefly with pt and introduced self and role. Pt was found returning from the bathroom and pushing IV pole. Pt is a 38 year old female who admitted yesterday afternoon to care of hospitalist team. PCP: pt confirms she does not have one Payer: [employer]icaid Pt is admitted for swelling in face and L arm abscess: on IV antibiotics. Per H&P pt does confirm she has a hx of IV heroin use and methamphetamines. She has reported to Dr. Child that she was in drug rehab 6 mnths ago and clean since. She reports her abscess must be from a spider bite. ER report of JUN 07 2018 shows that pt came to ER for medical clearance to get into Drug Dtox program. She was cleared for same but the report does not say where she went and today pt says she does not recall going anywhere. Have not been able to access any social work notes from that ER visit. OF NOTE: no drug tox screen was done on this admission. Pt is more appropriately followed by the DCP/[facility] T[facility]ATMENT OPERATOR team. Have discussed same with Yokasta/ALTHEA and who agrees to take over case. Will update hospitalist in Team Rounds. CM Discharge Assessment Start: 08/28/18 08:44 Freq: Status: Active Protocol: Document 08/28/18 08:45 ITV (Rec: 08/28/18 08:46 ITV [id number]) Discharge Planning Assessment Advance Directives? No History Provided By Patient Medical Record Is patient alert and oriented? Yes Whiteboard Updated in Patient Room with Yes name and ext. # of Associate Account Director Review Status In Process Next Review Type Continued Stay Review
[2018-08-28] MEDS: HYDROCODONE/ACET 5/325 TABLET 1 TAB PO ×2 (09:38→17:13)
--- NOTE | 2018-08-28 10:07 | P.PN_ITS ---
Subjective Date Patient Seen: 08/28/18 Time Patient Seen: 10:07 Interval history: She is seen in her room today to follow-up her left facial infection, left arm infection, elevated liver function tests and nicotine addiction. She appears to be very sleepy and wound open her eyes to talk to me. Her procalcitonin is less than 0.05. The ALT has dropped from 237 down to 195. The AST has dropped from 193 down to 119. Her CBC and BMP are normal. The wound culture is growing Staph aureus. Exam Vital Signs (past 8 hours): - 08/28/18 04:00 08/28/18 09:00 Temperature 98.3 F 97.4 F L Pulse Rate 87 94 H Respiratory Rate 16 14 Blood Pressure 136/65 103/67 Pulse Oximetry 97 99 Oxygen Delivery Method Room Air Oxygen Flow Rate 0 Narrative Exam Narrative: She is alert and oriented x3 but will not open her eyes and appears quite sleepy. Heart is regular rate and rhythm without murmur. Lungs are clear to auscultation bilaterally. Extremities have no ankle edema. The left cheek/jaw swelling and open wound appears to be just slightly red, probably stable or improving. Objective Labs Result Diagrams: 08/28/18 06:05 08/28/18 06:05 Labs: Laboratory Results - last 24 hr 08/27/18 08/27/18 08/27/18 11:42 11:42 11:42 WBC 10.3 RBC 4.69 Hgb 13.9 Hct 41.2 MCV 87.8 MCH 29.7 MCHC 33.8 RDW 13.5 Plt Count 250 Neut % (Auto) 79.1 H Lymph % (Auto) 11.8 L [place] % (Auto) 7.5 Eos % (Auto) 1.2 L Baso % (Auto) 0.4 Neut # (Auto) 8100 H Lymph # (Auto) 1200 [place] # (Auto) 800 Eos # (Auto) 100 Baso # (Auto) 0 Sodium 134 L Potassium 3.9 Chloride 95 L Carbon Dioxide 31 BUN 9 Creatinine 0.50 L Estimated GFR > 60.0 BUN/Creatinine Ratio 18.0 Glucose 110 H Lactate Calcium 9.0 Total Bilirubin 1.3 AST 119 H ALT 195 H Alkaline Phosphatase 90 Total Protein 7.2 Albumin 3.8 Globulin 3.4 Albumin/Globulin Ratio 1.1 Procalcitonin < 0.05 08/27/18 08/28/18 08/28/18 11:42 06:05 06:05 WBC 7.6 RBC 4.34 Hgb 12.9 Hct 38.1 MCV 87.7 MCH 29.8 MCHC 34.0 RDW 13.9 Plt Count 225 Neut % (Auto) 64.5 Lymph % (Auto) 21.9 L [place] % (Auto) 7.7 Eos % (Auto) 5.3 H Baso % (Auto) 0.6 Neut # (Auto) 4900 Lymph # (Auto) 1700 [place] # (Auto) 600 Eos # (Auto) 400 Baso # (Auto) 0 Sodium 137 Potassium 3.6 Chloride 105 Carbon Dioxide 27 BUN 11 Creatinine 0.50 L Estimated GFR > 60.0 BUN/Creatinine Ratio 22.0 Glucose 102 H Lactate 1.0 Calcium 8.1 L Total Bilirubin AST ALT Alkaline Phosphatase Total Protein Albumin Globulin Albumin/Globulin Ratio Procalcitonin Assessment & Plan (1) Elevated LFTs: Problem details: Unclear etiology Will order Hep C and US Current visit: Yes Status: Acute Assessment & Plan narrative: (1) Cellulitis of face: Problem details: Wound cultures with Staph aureus. Will continue IV vancomycin, and a stop IV Unasyn. Pharmacy to manage her Vanco. Patient is receiving pain medication for her abscesses. This was present on admission Current visit: Yes Status: Acute (2) Abscess of left arm: Problem details: Patient with left arm abscess status post I&D, present on admission continue daily dressing Current visit: Yes Status: Acute (3) Tobacco dependence: Problem details: Nicotine patch. Current visit: Yes Status: Acute Elevated LFT - Check US and HCV antibody. Recheck CMP tomorrow. Quality VTE Deep Vein Thrombosis/Pulmonary Embolism Present on Admission: No
--- NOTE | 2018-08-28 12:22 | PC.NURSE ---
Day Shift- Pt compliant this AM, sleepy but arousable. C/O 8/10 pain to left cheek and mouth area after eating breakfast. Left FA 8/10 throbbing. [place] prn X1 given at 0940 with satisfactory effect. Left FA small allevyn dressing CDI, no redness noted surrounding dressing. FA into elbow and upper arm edematous. Elevated on pillows and ice pack placed intermittent by pt. Left chin wound scabbed and small amount of redness noted with swelling. Ice pack placed intermittent by pt. Pt became NPO at 1135 for abd U/S in 4 hours. Pt upset that she couldn't eat lunch by complaint with no food/drink at this time. Oral care mouth swabs offered. Around 1215, pt was found attempting to get on elevator with elevator door open. Found by house keeping who warned physician office secretary. physician office secretary said she stated to pt she cannot leave the unit, pt very upset verbally. Escorted pt down hallway into this writers care who escorted pt back to her room. Explained hospital policy that pt or any patient is unable to leave the unit unless escorted by staff member for testing or if they are discharged. Pt continued to say she needed to get out of hospital. Support provided, offered to make her stay more comfortable. Pt declined anything at this time. Pt appeared to be texting on her phone during this conversation. Pt in room with IVF infusing with door open and call light within reach.
[2018-08-28 15:21] LABS: Hep C Virus Ab w/Reflex Quant REACTIVE s/c (NEGATIVE)
--- NOTE | 2018-08-28 16:50 | PC.NURSE ---
Addendum entered by Kristin Caballero R.N. 08/28/18 21:43: Vanco trough was drawn @ 2029. No results at this time. Pt lying quietly in bed with eyes closed. No signs of distress or discomfort. Has been supplied with ice packs x 2 for face and arm. Addendum entered by Kristin Caballero R.N. 08/28/18 17:58: Ultrasound of abdomen completed. Vicodin given for pain as well as milkshake and evening meal. Discussed with pharmacist, splitting of ER bupropion and this was okayed per pharmacy. Pt able to manage own airway and take in oral foods and fluids. Reports nausea and was given zofran. Reports lightheadedness. Vital signs as recorded. Instructed not to attempt out of bed without staff to assist. Bed alarm in place. Addendum entered by Kristin Caballero R.N. 08/28/18 16:58: Pt now awake and abdominal ultrasound in progress in pt's room. Original Note: Pt resting quietly in bed with eyes closed. No signs of distress or discomfort. Awaiting abdominal ultrasound. Pt remains NPO pending exam.
[2018-08-28] MEDS: buPROPion XL 150 MG TAB 75 MG PO (17:13)
[2018-08-28] MEDS: NICOTINE 7 MG PATCH TOP (17:13)
[2018-08-28] MEDS: ONDANSETRON 4 MG/2 ML INJ IV (17:29)
--- NOTE | 2018-08-28 18:14 | CM.DPNOTE ---
DCP: cont This LOAN CLOSER made 3-separate attempts to meet with pt and complete the discharge planning assessment. Each time she was sleeping. LOAN CLOSER did actually knock loudly on her door at the second attempt to meet with her, however she barely opened her eyes and stated that she just wanted to sleep, and to come back later. The third attempt, she did not stir when LOAN CLOSER entered the room. Assessment will need to be made by the weekend LOAN CLOSER. LOAN CLOSER was assigned rather than RN DC program planner due to need to assess for substance abuse resources and/or treatment, if pt is willing.
[2018-08-28] MEDS: MORPHINE 2 MG/ML INJ IV (19:48)
[2018-08-28] MEDS: DOXEPIN 25 MG CAPSULE 100 MG PO (20:01)
[2018-08-28 21:56] LABS: Vancomycin Trough 14.8 ug/mL (10-20)
[2018-08-28] MEDS: VANCOMYCIN 300 ML 150 MG IV (22:01)
[2018-08-29] VITALS (9 sets, daily range): BP systolic 97–116; BP diastolic 52–74; PULSE 85–99; RESP 16–20; TEMP 36.6–37.1; O2SAT 97–99
--- NOTE | 2018-08-29 01:38 | PC.NURSE ---
Addendum entered and electronically signed by Kika Marquez R.N. 08/29/18 05:38: Pt had 1000ml out of urine on this shift. Impulsive w/ getting out of bed, needs bed alarm. Original Note: Pt resting quietly in bed. Denies pain, lung sounds clear, VSS.
[2018-08-29] MEDS: VANCOMYCIN 300 ML 150 MG IV (05:07)
[2018-08-29] MEDS: SODIUM CHLORIDE 0.9% 1,000 ML 200 ML IV (05:08)
[2018-08-29] MEDS: HYDROCODONE/ACET 5/325 TABLET 1 TAB PO ×3 (09:23→18:33)
--- NOTE | 2018-08-29 10:28 | PM.PN.1 ---
Subjective Date Patient Seen: 08/29/18 Time Patient Seen: 10:28 Interval history: She is seen today to follow-up the elevated liver enzymes, left arm abscess, left facial abscess. Her abscess culture is growing MSSA. Her viral hepatitis tests are positive for hepatitis C. Her liver ultrasound suggests cholecystitis. She will not open her eyes or speak to me. Vancomycin trough is 14.8. Exam Vital Signs (past 8 hours): - 08/29/18 05:58 08/29/18 07:35 08/29/18 09:05 Temperature 98.5 F 98.5 F Pulse Rate 91 H 95 H Respiratory Rate 18 18 Blood Pressure 116/72 113/69 Pulse Oximetry 98 99 99 Oxygen Delivery Method Room Air Oxygen Flow Rate 0 Narrative Exam Narrative: She is alert and shows signs of awareness that I am there but she will not open her eyes or speak to me. This is the way she has interacted with me for 2 days now. On her left face there is a large area of induration with decreasing redness and evident improvement. On the left forearm there is a dressing over a small abscess site without significant ongoing drainage. Heart is regular rate and rhythm without murmur Extremities have no edema. Objective Labs Result Diagrams: 08/28/18 06:05 08/28/18 06:05 Labs: Laboratory Results - last 24 hr 08/28/18 08/28/18 11:30 20:38 Vancomycin Trough 14.8 Hepatitis C Antibody Reactive H Assessment & Plan Assessment & Plan narrative: (1) Elevated LFTs: Hepatitis C is confirmed Current visit: Yes Status: Acute (1) Cellulitis of face: Problem details: Wound cultures with MSSA. Will stop vancomycin and start cefazolin IV. Patient is receiving pain medication for her abscesses. This was present on admission Change to oral antibiotics and discharge home possibly tomorrow. Current visit: Yes Status: Acute (2) Abscess of left arm: Problem details: Patient with left arm abscess status post I&D, present on admission continue daily dressing Current visit: Yes Status: Acute (3) Tobacco dependence: Problem details: Nicotine patch. Current visit: Yes Status: Acute Elevated LFT -hepatitis-C antibody is positive with reflex RNA pending. -gallbladder ultrasound suggests cholecystitis but she has no symptoms of such. Unusual avoidance/interaction with nursing and medical staff. -urine drug screen ordered. Rule out use of illicit substances brought in by visiting friends. Quality VTE Deep Vein Thrombosis/Pulmonary Embolism Present on Admission: No
[2018-08-29] MEDS: CEFAZOLIN 2 GM/100 ML FROZ.PIGGY IV ×2 (11:06→18:34)
--- NOTE | 2018-08-29 15:28 | CM.DANOTE ---
Addendum entered by Doris Parra 08/29/18 15:37: suggesting tox screen today. Unclear on whether or not patient has been using during hospitalization. Original Note: DCP/Assessment: Reviewed chart. Patient is a 38yr old female admitted to [facility] with swelling in arm/face. No PCP listed. Primary payor is 1)[facility] 2)Medicaid. Per notes, patient with h/o IV drub use. Currently patient with cellulitis on her face and left arm abscess post I&D. CREDIT COUNSELOR met with patient explained CM/SW role. Patient awake and alert at time of visit but not receptive to answer questions. Patient asked about drug use and patient denied. Patient reports that she resides with her Mother and plans to return home when stable. Patient does not currently have PCP. Encouraged patient to call [facility] to find PCP accepting new patients. Patient also made aware that she can utilize [facility]. Spoke with MD and he reports that patient will be discharge on po abx. No additional needs identified at this time. Will request CREDIT COUNSELOR re-check in with patient prior to d/c to again offer substance abuse assistance/resources. P: Home when stable. ALTHEA Sosa Discharge Planning/Care Management CM Discharge Assessment Start: 08/28/18 08:44 Freq: Status: Active Protocol: Document 08/28/18 08:45 ITV (Rec: 08/28/18 08:46 [id number]) Discharge Planning Assessment Advance Directives? No History Provided By Patient Medical Record Is patient alert and oriented? Yes Whiteboard Updated in Patient Room with Yes name and ext. # of Inflatable Buildings Laminator Review Status In Process Next Review Type Continued Stay Review Document 08/29/18 15:25 KJS (Rec: 08/29/18 15:28 KJS [id number]) Discharge Planning Assessment Assigned Inflatable Buildings Laminator ALTHEA Sosa Contact Information Ml Gomes (mother) Advance Directives? No History Provided By Patient Medical Record Prior Living Arrangements Apartment/Condo Household Members friend(s) Independent with ADL's Yes Is patient alert and oriented? Yes Caregiver for Another No Barriers to Discharge No Discharge Plan Home Transportation Arrangement Family Referrals Initiated Other Additional Comment Patient declines any subsance abuse resources. Whiteboard Updated in Patient Room with Yes name and ext. # of Inflatable Buildings Laminator Review Status In Process Next Review Type Continued Stay Review
[2018-08-29] MEDS: NICOTINE 7 MG PATCH TOP (16:57)
[2018-08-29] MEDS: buPROPion XL 150 MG TAB 75 MG PO (16:57)
[2018-08-29] MEDS: DOXEPIN 25 MG CAPSULE 100 MG PO (20:44)
--- NOTE | 2018-08-29 23:34 | PC.NURSE ---
SHIFT 3p-11p Report received, care assumed, pt. sleeping. VSS. When awake, c/o pain 8-10. A few visitors came and went throughout the shift. Pt ruptured pustule on left cheek. Serosanguinous drainage. Left arm dressing intact. Right arm tender, puffy, without open wound. Clean hat was placed in toilet at beginning of shift. Apparently one had been sent earlier, so pt. didn't realize we needed a new one and dumped the urine. Another clean hat placed.
[2018-08-30 00:31] VITALS: O2SAT 97
[2018-08-30] MEDS: HYDROCODONE/ACET 5/325 TABLET 1 TAB PO ×2 (00:44→08:05)
--- NOTE | 2018-08-30 01:28 | PC.NURSE ---
Addendum entered and electronically signed by Kika Marquez R.N. 08/30/18 01:35: Pt has warm, edematous spot on right forearm. Plan to pass off information to day shift to address this change w/ hospitalist tomorrow. Original Note: Allevyn dressing applied to L side cheek face ulcer. Pt had picked at skin.
[2018-08-30] MEDS: CEFAZOLIN 2 GM/100 ML FROZ.PIGGY IV (02:13)
[2018-08-30 06:00] VITALS: BP 93/47; PULSE 88; RESP 16; TEMP 36.8; O2SAT 97
[2018-08-30 06:16] LABS: Alanine Aminotransferase 126 IU/L (9-52); Albumin 2.8 g/dL (3.5-5.0); Alkaline Phosphatase 87 U/L (38-126); Aspartate Aminotransferase 69 IU/L (14-36); Bilirubin Total 0.2 mg/dL (0.2-1.3); Blood Urea Nitrogen 6 mg/dL (7-17); Calcium 8.6 mg/dL (8.4-10.2); Carbon Dioxide 25 mmol/L (22-32); Chloride 106 mmol/L (98-107); Estimated Glomerular Filt Rate > 60.0 mL/min (>60); Globulin 2.7 g/dL (1.7-4.1); Glucose 112 mg/dL (70-100); HEMOLYSIS < 15 (0-50); Potassium 3.5 mmol/L (3.4-5.1); Sodium 137 mmol/L (137-145); Total Protein 5.5 g/dL (6.3-8.2)
[2018-08-30 07:35] VITALS: O2SAT 95
[2018-08-30 08:35] VITALS: BP 93/57; PULSE 88; RESP 14; TEMP 36.7; O2SAT 96
[2018-08-30] MEDS: CIPROFLOXACIN 500 MG TABLET PO (09:11)
--- NOTE | 2018-08-30 10:28 | P.DS_ITS ---
History of Present Illness Date Patient Seen: 08/27/18 Chief complaint: SWELLING IN ARM AND FACE Narrative: Written by Dr. Child: The patient is a 38-year-old female with a history of IV substance abuse who was in her usual state of health until about 3 days ago. The patient had a facial pimple which she expressed pus from. However the left side of her face started swelling and became tender. In addition she developed an abscess over the left forearm. She denies injecting into the forearm. She states she went in to drug rehabilitation about 6 months ago and has been clean since that time. The patient had nausea and vomiting. She denies any fever. She was seen in the emergency room where the abscess of the left arm was drained. She underwent a CT scan of the face which showed no collection of pus or drainable fluid collection. The left face was swollen and felt to be consistent with cellulitis. Patient was admitted to the hospital for further evaluation. She was given IV Vanco in the emergency department and added Unasyn to her regimen as well. Cultures were sent from the emergency department. Patient is admitted for further evaluation. Discharge Providers Date of admission: 08/27/18 14:26 Discharge Date: 08/30/18 Consults: 08/27/18 15:12 Consult to Pastoral Services Routine Comment: PATIENT STATES SHE DOESNT' MIND A VISIT Discharge provider: Brigid Elkins DO Summary Discharge Diagnosis: 1. Acute MSSA cellulitis of face and abscess of left arm, status post I and D, present on admission. Resolving. 2. Transaminitis, unclear acuity, probably secondary to hepatitis C infection, present on admission. Improving. 3. Polysubstance abuse, present on admission. Active. 4. Depression and anxiety, chronic, present on admission. Stable. 5. Tobacco dependence, chronic, present on admission. Stable. Hospital Course: Stacy Mary is a 38-year-old female with a past medical history significant for depression, anxiety, and polysubstance abuse including IV drug use who presented for left-sided facial swelling and left arm abscess. 1. Acute MSSA cellulitis of face and abscess of left arm, status post I and D, present on admission. Resolving. -Status post I&D. -Wound culture from both face and left arm grew MSSA resistant to only erythromycin. Blood cultures have no growth to date. -Initially treated with unasyn and vancomycin with dosing per pharmacist. Discontinued vancomycin once sensitivites resulted. Discharged with ciprofloxacin 500 mg twice daily to complete 10 day course of antibiotics total. 2. Transaminitis, unclear acuity, probably secondary to hepatitis C infection, present on admission. Improving. -Hepatitis C antibody is positive with reflex RNA pending. Informed patient that she was positive for Hepatitis C and she acted surprised and she was the most interactive she had been with medical staff per nursing. Discussed need for patient to establish with PCP and have hepatitis C infection treated which she agreed to. However when I discussed with her how she was going to obtain a PCP she did not have much of a plan in place and gave her references to physicians in the area accepting new patients. -Abdominal ultrasound demonstrated sonographically normal liver with cholelithiasis and gallbladder wall thickening possibly suggestive of cholecystitis, however, patient has no abdominal pain or signs/symptoms of acute cholecystitis. 3. Polysubstance abuse, present on admission. Active. -Patient is unusually withdrawn, avoids and does not readily speak with nursing or medical staff. -Repeat urine drug screen ordered but never obtained. UDS positive previously for opiate, oxycodone, amphetamines, methamphetamines, and THC. There is thought that patient may have used illicit substances brought in by visiting friends. 4. Depression and anxiety, chronic, present on admission. Stable. -Patient is unusually withdrawn, avoids and does not readily speak with nursing or medical staff. Possibly her baseline and secondary to severe depression versus illicit drug use. -Continued bupropion 75 mg daily and doxepin 100 mg daily at bedtime. 5. Tobacco dependence, chronic, present on admission. Stable. -Provided nicotine patch as needed for nicotine withdrawal. Status at Discharge Functional status at discharge: independent ambulation Overall status at discharge: patient is progressing back to baseline Exam Vital Signs (past 8 hours): - 08/30/18 06:00 08/30/18 07:35 08/30/18 08:35 Temperature 98.3 F 98.0 F Pulse Rate 88 88 Respiratory Rate 16 14 Blood Pressure 93/47 L 93/57 L Pulse Oximetry 97 95 96 Oxygen Delivery Method Room Air Oxygen Flow Rate 0 Narrative Exam Narrative: General: Middle-aged female lying in bed and in no acute distress, well- developed, well-nourished, significantly withdrawn and does not readily speak to medical or nursing staff. HEENT: Normocephalic, atraumatic. External ears without defect. Pupils equal, round, and reactive to light. Anicteric sclerae, moist conjunctivae, and no lid lag. Oropharynx free of erythema and cobble stoning with moist mucosa. Left jaw cellulitis resolved with small circular wound/I&D site on jaw line healing well with little serous drainage on dressing. Neck: Supple with full range of motion. No lymphadenopathy or thyromegaly. Cardiovascular: Regular rate and rhythm with no murmurs, rubs, or gallops skinny reciated. Pulmonary: Clear to auscultation bilaterally with no crackles, wheezes, or rhonchi. Normal respiratory effort with no use of accessory muscles. Abdomen: Soft, bowel sounds present, nontender, nondistended. No hepatosplenomegaly or masses appreciated. Extremities: No clubbing, cyanosis, or edema. Skin: Normal temperature, turgor, and texture; Small 05.-1cm wound on left jaw and 2 cm wound on left elbow with mild serous drainage and bandages in place. Neurological: Cranial nerves grossly intact. Psychiatric: Depressed mood and significant flat affect. Appears to be alert and oriented to person, place, and time. Objective Labs Result Diagrams: 08/28/18 06:05 08/30/18 05:43 Labs: Laboratory Results - last 24 hr 08/30/18 05:43 Sodium 137 Potassium 3.5 Chloride 106 Carbon Dioxide 25 BUN 6 L Creatinine 0.40 L Estimated GFR > 60.0 BUN/Creatinine Ratio 15.0 Glucose 112 H Calcium 8.6 Total Bilirubin 0.2 AST 69 H ALT 126 H Alkaline Phosphatase 87 Total Protein 5.5 L Albumin 2.8 L Globulin 2.7 Albumin/Globulin Ratio 1.0 Discharge Plan Discharge Plan Patient Disposition: Home Discharge comment: You are being discharged home. You need to establish care with a provider in the community. Dr. Silva at [facility] is taking new patients. You have hepatitis C which is treatable and you should be on Suboxone to help keep you from withdrawing and re-using heroin. Discharge Med Rec/Prescriptions Prescriptions: New ciprofloxacin HCl [Cipro] 500 mg Tablet 500 mg PO BID Qty: 12 RF: 0 Continued doxepin 100 mg capsule 100 mg PO QPM RF: 0 bupropion HCl 75 mg tablet 75 mg PO DAILY RF: 0 Provider Discharge Instructions Diet: Diet as Tolerated Visit Report/Discharge Packet Instructions: DI for Cellulitis -- Adult, DI for Hepatitis C, DI for Incision and Drainage of a Skin Abscess, Buprenorphine Sublingual and Buccal (opioid dependence) Discharge Data Attending Provider: Nadiya Child Admit Date/Time: 08/27/18 14:26 Discharges patient from system. Discharge Date/Time: 08/30/18 12:52 Quality VTE Deep Vein Thrombosis/Pulmonary Embolism Present on Admission: No
--- NOTE | 2018-08-30 10:53 | PC.NURSE ---
Pt is dressed and ready for discharge home with mother Ml. Pt has received discharge teaching about d/c meds and time of last dose. Reviewed recommendations from Dr. Elkins to establish with Dr. Silva as a PCP, follow up with Dr. Silva about wounds, initiate suboxone treatment for heroin addiction, and avoid illicit drug use as well as get tx for hep C. Reviewed stroke education, replaced dsg to left forearm. Pt denied further questions and plans to eat lunch and then discharge home.
--- NOTE | 2018-08-30 11:08 | CM.DPNOTE ---
Reviewed chart. Pt discussed in multidisciplinary rounds; pt is medically stable for DC today and refuses any substance abuse assistance/resources. Checked in w/ RN Dona who confirms above. Pt will get picked up by friend or Mother and plans to return to Mother's house. Pt denies need for resources of any kind today. ALTHEA Stout
== END 2018-08-30 12:52 | disposition home or self-care (01) ==
LOC: ED 13:45 → AC 15:33
PROVIDERS: Family Medicine; Admitting Provider Internal Medicine; Emergency Provider Emergency Medicine; Visit Provider Internal Medicine
DX: L03.211 Cellulitis of face (principal); B95.61 Methicillin susceptible Staphylococcus aureus infection as the cause of diseases classified elsewhere; L03.114 Cellulitis of left upper limb; R79.89 Other specified abnormal findings of blood chemistry; F17.210 Nicotine dependence, cigarettes, uncomplicated; B19.20 Unspecified viral hepatitis C without hepatic coma
CPT/HCPCS: 10060; 36415; 36591; 70487; 76705; 80048; 80053; 80202; 83605; 84145; 85025; 86803; 87040; 87070; 87075; 87077; 87147; 87186; 87205; 87522; 94762; 96374; 96375; 99283; 99284; G0378; J0295; J0690; J1885; J2270; J2405; J3370; Q9967

== ENCOUNTER 2018-10-06 16:17 | Emergency (ER) | payer OTHER, MEDICAID, SELFPAY ==
[2018-10-06 16:21] VITALS: BP 111/75; PULSE 105; RESP 16; TEMP 36.7; O2SAT 100; BMI 23.1
--- NOTE | 2018-10-06 16:48 | PC.NURSE ---
Patient treated in august for facial abscess with ABX and hospitalized. Patient states abscess on face has been slowly getting worse.
[2018-10-06 16:50] LABS: Add Manual Diff / Slide Review NO; Basophils Absolute Auto 100 /uL (0-100); Basophils Percent Auto 1.1 % (0-2); Eosinophils Absolute Auto 400 /uL (0-450); Eosinophils Percent Auto 4.4 % (2-4); Hemoglobin 14.9 g/dL (12.0-16.0); Lymphocytes Absolute Auto 2100 /uL (1100-4500); Lymphocytes Percent Auto 25.2 % (25-40); Mean Corpuscular HGB Conc 33.9 % (30-36); Mean Corpuscular Hemoglobin 29.8 PG (26-34); Mean Corpuscular Volume 87.8 fL (80-100); Monocytes Absolute Auto 500 /uL (0-900); Monocytes Percent Auto 6.7 % (3-14); Neutrophils Absolute Auto 5200 /uL (1500-7000); Neutrophils Percent Auto 62.6 % (50-75); Platelet Count 283 X10^3/uL (150-400); Red Blood Cell Count 5.01 X10^6/uL (4.0-5.2); Red Cell Distribution Width 13.7 % (11.6-14.8); White Blood Cell Count 8.2 X10^3/uL (4.5-11.0)
[2018-10-06] MEDS: ONDANSETRON 4 MG/2 ML INJ IV (16:50)
[2018-10-06] MEDS: SODIUM CHLORIDE 0.9% 1,000 ML 1000 ML IV (16:51)
--- NOTE | 2018-10-06 17:00 | DI.CT.S_ITS ---
PROCEDURE: CT FACIAL BONES W CON INDICATIONS: jaw/chin infection TECHNIQUE: After the administration of intravenous contrast, 2.5 mm axial sections acquired from the mid-neck to the frontal sinuses, with coronal and sagittal reformats. For radiation dose reduction, the following was used: automated exposure control, adjustment of mA and/or kV according to patient size. COMPARISON: [facility], CT, CT FACIAL BONES W CON, 08/27/2018, 12:18. FINDINGS: Image quality: Excellent. Soft tissues: Diffuse fat stranding within the soft tissues surrounding the anterior mandible. Within the right inferior mental region, there are 2 adjacent peripheral enhancing fluid collections measuring 4 mm and 18 mm. Multiple mildly prominent lymph nodes within the upper neck. Vascular: Visualized vascular structures appear patent throughout. Bony vascular foramina and canals appear normal. Bones: Facial bones appear intact, without fractures, erosions, or destruction. Visualized portions of the skull base and auditory canals also appear normal. Sinuses: Paranasal sinuses are aerated without fluid levels, mucosal thickening, or mucoceles. Mastoid air cells are aerated. IMPRESSION: 1. Diffuse cellulitis versus edema. 2. Small abscesses within the right inferior chin. 3. Reactive lymph node enlargement. Dictated by: Tiffanie Aaron M.D. on 10/06/2018 at 17:37 Approved by: Tiffanie Aaron M.D. on 10/06/2018 at 17:40
[2018-10-06 17:02] LABS: Alanine Aminotransferase 286 IU/L (9-52); Albumin 4.3 g/dL (3.5-5.0); Albumin Globulin Ratio 1.2 (1.0-2.8); Alkaline Phosphatase 105 U/L (38-126); Aspartate Aminotransferase 134 IU/L (14-36); Bilirubin Total 0.8 mg/dL (0.2-1.3); Blood Urea Nitrogen 11 mg/dL (7-17); Calcium 9.5 mg/dL (8.4-10.2); Carbon Dioxide 34 mmol/L (22-32); Chloride 99 mmol/L (98-107); Estimated Glomerular Filt Rate > 60.0 mL/min (>60); Globulin 3.7 g/dL (1.7-4.1); Glucose 97 mg/dL (70-100); HEMOLYSIS < 15 (0-50); Lactate (Lactic Acid) 0.9 mmol/L (0.7-2.1); Sodium 141 mmol/L (137-145)
--- NOTE | 2018-10-06 17:03 | ED.SKABFB ---
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 She states this has been there for the past 3 months. She states she came in today because is not going away. She was admitted to the hospital on 08/27 for a similar issue on ?the other side of the chin.She denies any fevers, vomiting or diarrhea. She is eating and drinking well, is eating and drinking in the exam room. She states she came in today not because it is growing, but because it is not going away. She has noted no drainage. She has not applied anything. She states she was discharged from the hospital last month, but did not continue her antibiotic prescription. She states she had trouble getting it and had to go to work. Related Data Previous Rx's Medication Instructions Recorded clindamycin HCl 300 mg PO QID #40 cap 10/06/18 Allergies Allergy/AdvReac Type Severity Reaction Status Date / Time buspirone [From BUSPAR] Allergy Unknown Verified 10/06/18 16:21 venlafaxine [From EFFEXOR] Allergy Unknown Verified 10/06/18 16:21 Review of Systems <LESLIE Ross - Last Filed: 10/06/18 19:35> Review of Systems GENERAL: Denies chills, fatigue, malaise, fever, sweats. HEENT: Denies sinus pain, ear pain, sore throat, difficulty swallowing, dizziness. RESPIRATORY: Denies dyspnea, cough, wheezing, hemoptysis, sputum. CARDIOVASCULAR: Denies chest pain, palpitations, orthopnea, edema, GASTROINTESTINAL: Denies nausea, vomiting, abdominal pain, diarrhea, constipation, melena. : Denies dysuria, frequency, incontinence, hematuria, urinary retention. MUSCULOSKELETAL: denies weakness, joint pain, or bony pain SKIN: See HPI NEUROLOGIC: Denies weakness, headache, numbness, change in speech, confusion, seizures, incoordination. PSYCHIATRIC: No concerning psychosocial issues. 12 point review of systems is negative except for those stated above PFSH <LESLIE Ross - Last Filed: 10/06/18 19:35> Medical History 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) Neurofibromatosis (Acute) Family History Grandfather Age: 78 Cancer Hypertension High cholesterol Grandmother Age: 78 Cancer Hypertension Stroke Grandfather Cancer Hypertension Grandmother Cancer Social History household members: friend(s) Smoking Status: Current every day smoker substance use type: former substance user, heroin, IV drugs and methamphetamine Social History household members: friend(s) Smoking Status: Current every day smoker substance use type: former substance user, heroin, IV drugs and methamphetamine Exam <LESLIE Ross - Last Filed: 10/06/18 19:35> Narrative Exam Narrative: GENERAL: This is a well-nourished, well-developed patient, no acute distress HEAD: Atraumatic. Normocephalic. No temporal or scalp tenderness. EYES: Pupils equal round and reactive. Extraocular motions intact. No scleral icterus. No injection or drainage. ENT: Nose without bleeding, purulent drainage or septal hematoma. Throat without erythema, tonsillar hypertrophy or exudate. Uvula midline. Airway patent. See skin exam NECK: Trachea midline. No JVD or lymphadenopathy. Supple, nontender, no meningeal signs. CARDIOVASCULAR: Regular rate and rhythm without murmurs, gallops, or rubs. RESPIRATORY: Clear to auscultation. Breath sounds equal bilaterally. No wheezes, rales, or rhonchi. No cough. No increased respiratory effort. No accessory muscle use. GASTROINTESTINAL: Abdomen soft, non-tender, nondistended. No hepato-splenomegaly, or palpable masses. No guarding. EXTREMITIES: No clubbing, cyanosis, or edema. No joint tenderness, effusion, or edema noted. BACK: Nontender without deformity or crepitance. No flank tenderness. NEURO: AOx3. SKIN: 2 x 1 cm of erythema noted on bowers with no significant palpable fluctuance. Erythema noted, with no extending erythema other than bowers. Does not extend up to cheeks or lips. Does not extend down neck. Initial Vital Signs Initial Vital Signs: Vital Signs Temperature 98.1 F 10/06/18 16:21 Pulse Rate 105 H 10/06/18 16:21 Respiratory Rate 16 10/06/18 16:21 Blood Pressure 111/75 10/06/18 16:21 Pulse Oximetry 100 10/06/18 16:21 <Yvette Wang MD - Last Filed: 10/06/18 20:37> Initial Vital Signs Initial Vital Signs: Vital Signs Temperature 98.1 F 10/06/18 16:21 Pulse Rate 105 H 10/06/18 16:21 Respiratory Rate 16 10/06/18 16:21 Blood Pressure 111/75 10/06/18 16:21 Pulse Oximetry 100 10/06/18 16:21 Course <LESLIE Ross - Last Filed: 10/06/18 19:35> Orders Ordered: ED Orders 10/06/18 16:40 Complete Blood Count AUTO DIFF Stat Comprehensive Metabolic Panel Stat Lactate (Lactic Acid) Stat 10/06/18 17:00 CT facial bones w con Stat Discontinued Medications Sodium Chloride (Normal Saline 0.9%) 1,000 mls @ 1,000 mls/hr IV BOLUS ONE Stop: 10/06/18 17:26 Last Infusion: 10/06/18 18:58 Dose: 0 mls/hr Admin: 10/06/18 16:51 Dose: 1,000 mls/hr Clindamycin Phosphate (Cleocin) 600 mg in 50 mls @ 50 mls/hr IV NOW ONE Stop: 10/06/18 18:43 Last Infusion: 10/06/18 18:57 Dose: 0 mls/hr Admin: 10/06/18 17:51 Dose: 50 mls/hr Ondansetron HCl (Zofran) 4 mg IV NOW ONE Stop: 10/06/18 16:28 Last Admin: 10/06/18 16:50 Dose: 4 mg Vital Signs - 8 hr 10/06/18 16:21 10/06/18 19:34 Temperature 98.1 F 97.2 F L Pulse Rate 105 H 96 H Respiratory Rate 16 Blood Pressure 111/75 111/72 Pulse Oximetry 100 100 <Yvette Wang MD - Last Filed: 10/06/18 20:37> Orders Ordered: ED Orders 10/06/18 16:40 Complete Blood Count AUTO DIFF Stat Comprehensive Metabolic Panel Stat Lactate (Lactic Acid) Stat 10/06/18 17:00 CT facial bones w con Stat Discontinued Medications Sodium Chloride (Normal Saline 0.9%) 1,000 mls @ 1,000 mls/hr IV BOLUS ONE Stop: 10/06/18 17:26 Last Infusion: 10/06/18 18:58 Dose: 0 mls/hr Admin: 10/06/18 16:51 Dose: 1,000 mls/hr Clindamycin Phosphate (Cleocin) 600 mg in 50 mls @ 50 mls/hr IV NOW ONE Stop: 10/06/18 18:43 Last Infusion: 10/06/18 18:57 Dose: 0 mls/hr Admin: 10/06/18 17:51 Dose: 50 mls/hr Ondansetron HCl (Zofran) 4 mg IV NOW ONE Stop: 10/06/18 16:28 Last Admin: 10/06/18 16:50 Dose: 4 mg Vital Signs - 8 hr 10/06/18 16:21 10/06/18 19:34 Temperature 98.1 F 97.2 F L Pulse Rate 105 H 96 H Respiratory Rate 16 Blood Pressure 111/75 111/72 Pulse Oximetry 100 100 MDM - Skin/Abscess/Foreign Bdy <LESLIE Ross - Last Filed: 10/06/18 19:35> Lab Data Result diagrams: 10/06/18 16:40 10/06/18 16:40 Lab Results 10/06/18 10/06/18 10/06/18 Range/Units 16:40 16:40 16:40 WBC 8.2 (4.5-11.0) X10^3/uL RBC 5.01 (4.0-5.2) X10^6/uL Hgb 14.9 (12.0-16.0) g/dL Hct 44.0 (36-46) % MCV 87.8 (80-100) fL MCH 29.8 (26-34) PG MCHC 33.9 (30-36) % RDW 13.7 (11.6-14.8) % Plt Count 283 (150-400) X10^3/uL Neut % (Auto) 62.6 (50-75) % Lymph % (Auto) 25.2 (25-40) % [place] % (Auto) 6.7 (3-14) % Eos % (Auto) 4.4 H (2-4) % Baso % (Auto) 1.1 (0-2) % Neut # (Auto) 5200 (5263-9675) /uL Lymph # (Auto) 2100 (4897-5371) /uL [place] # (Auto) 500 (0-900) /uL Eos # (Auto) 400 (0-450) /uL Baso # (Auto) 100 (0-100) /uL Sodium 141 (137-145) mmol/L Potassium 4.0 (3.4-5.1) mmol/L Chloride 99 (98-107) mmol/L Carbon Dioxide 34 H (22-32) mmol/L BUN 11 (7-17) mg/dL Creatinine 0.50 L (0.52-1.04) mg/dL Estimated GFR > 60.0 (>60) mL/min BUN/Creatinine Ratio 22.0 (6-22) Glucose 97 (70-100) mg/dL Lactate 0.9 (0.7-2.1) mmol/L Calcium 9.5 (8.4-10.2) mg/dL Total Bilirubin 0.8 (0.2-1.3) mg/dL AST 134 H (14-36) IU/L ALT 286 H (9-52) IU/L Alkaline Phosphatase 105 (38-126) U/L Total Protein 8.0 (6.3-8.2) g/dL Albumin 4.3 (3.5-5.0) g/dL Globulin 3.7 (1.7-4.1) g/dL Albumin/Globulin Ratio 1.2 (1.0-2.8) Imaging Data Face CT: Radiologist's impression: [address] [address] [address] Scan Report Signed Patient: Stacy Mary [facility]#: [id number] : 1980Acct:[id number] Age/Sex: 38 / FDate of Service: 10/06/18 Loc: ED Accession Number: [id number] Procedure: CT facial bones w con Ordering Provider: Rohini Gonzales PROCEDURE: CT FACIAL BONES W CON INDICATIONS: jaw/chin infection TECHNIQUE: After the administration of intravenous contrast, 2.5 mm axial sections acquired from the mid-neck to the frontal sinuses, with coronal and sagittal reformats. For radiation dose reduction, the following was used: automated exposure control, adjustment of mA and/or kV according to patient size. COMPARISON: [facility], CT, CT FACIAL BONES W CON, 08/27/2018, 12:18. FINDINGS: Image quality: Excellent. Soft tissues: Diffuse fat stranding within the soft tissues surrounding the anterior mandible. Within the right inferior mental region, there are 2 adjacent peripheral enhancing fluid collections measuring 4 mm and 18 mm. Multiple mildly prominent lymph nodes within the upper neck. Vascular: Visualized vascular structures appear patent throughout. Bony vascular foramina and canals appear normal. Bones: Facial bones appear intact, without fractures, erosions, or destruction. Visualized portions of the skull base and auditory canals also appear normal. Sinuses: Paranasal sinuses are aerated without fluid levels, mucosal thickening, or mucoceles. Mastoid air cells are aerated. IMPRESSION: 1. Diffuse cellulitis versus edema. 2. Small abscesses within the right inferior chin. 3. Reactive lymph node enlargement. Dictated by: Tiffanie Aaron M.D. on 10/06/2018 at 17:37 Approved by: Tiffanie Aaron M.D. on 10/06/2018 at 17:40 [facility] Narrative Medical decision making narrative: The patient is a 38-year-old female who presents with a chief complaint of a facial abscess. She does not have a palpable fluctuance on exam, is afebrile does not have an elevated white blood cell count or an elevated lactate. Well in the exam room. Given that she only came in because it was not going away, I feel she is okay for outpatient treatment. She was given IV clindamycin in the emergency department negative discharge her with a prescription of clindamycin. Discussed monitoring for fevers, inability keep down fluids or any acute changes. Encouraged follow-up with primary care provider. Gave patient contact information for the health natural resources professor. Patient has no questions or concerns upon discharge. <Yvette Wang MD - Last Filed: 10/06/18 20:37> Lab Data Lab Results 10/06/18 10/06/18 10/06/18 Range/Units 16:40 16:40 16:40 WBC 8.2 (4.5-11.0) X10^3/uL RBC 5.01 (4.0-5.2) X10^6/uL Hgb 14.9 (12.0-16.0) g/dL Hct 44.0 (36-46) % MCV 87.8 (80-100) fL MCH 29.8 (26-34) PG MCHC 33.9 (30-36) % RDW 13.7 (11.6-14.8) % Plt Count 283 (150-400) X10^3/uL Neut % (Auto) 62.6 (50-75) % Lymph % (Auto) 25.2 (25-40) % [place] % (Auto) 6.7 (3-14) % Eos % (Auto) 4.4 H (2-4) % Baso % (Auto) 1.1 (0-2) % Neut # (Auto) 5200 (0224-5524) /uL Lymph # (Auto) 2100 (3790-0956) /uL [place] # (Auto) 500 (0-900) /uL Eos # (Auto) 400 (0-450) /uL Baso # (Auto) 100 (0-100) /uL Sodium 141 (137-145) mmol/L Potassium 4.0 (3.4-5.1) mmol/L Chloride 99 (98-107) mmol/L Carbon Dioxide 34 H (22-32) mmol/L BUN 11 (7-17) mg/dL Creatinine 0.50 L (0.52-1.04) mg/dL Estimated GFR > 60.0 (>60) mL/min BUN/Creatinine Ratio 22.0 (6-22) Glucose 97 (70-100) mg/dL Lactate 0.9 (0.7-2.1) mmol/L Calcium 9.5 (8.4-10.2) mg/dL Total Bilirubin 0.8 (0.2-1.3) mg/dL AST 134 H (14-36) IU/L ALT 286 H (9-52) IU/L Alkaline Phosphatase 105 (38-126) U/L Total Protein 8.0 (6.3-8.2) g/dL Albumin 4.3 (3.5-5.0) g/dL Globulin 3.7 (1.7-4.1) g/dL Albumin/Globulin Ratio 1.2 (1.0-2.8) Discharge Plan Departure Patient Disposition: Home Clinical Impression: Cellulitis of face Abscess of skin or subcutaneous tissue Qualifiers: Site of cutaneous abscess: face Qualified Code(s): L02.01 - Cutaneous abscess of face Discharge Date/Time: 10/06/18 19:34 Interventions: ED Discharge Assessment Last Done: 10/06/18 19:34 Instructions: DI for Cellulitis -- Adult Activity Restrictions/Additional Instructions: I have prescribed you an antibiotic. Please take probiotics or yogurt with it. Please monitor for spreading, fevers or inability keep down fluids.. Please use warm packs to your face to help it drain. Please come back to the emergency department for any acute concerns such as inability keep down fluids, high fevers etc. Please follow up with primary care provider. I have given you contact information for [facility] health natural resources professor, who can help you identify one Prescriptions: New clindamycin HCl 300 mg capsule 300 mg PO QID Qty: 40 RF: 0 Referrals: [facility] [Outside]
[2018-10-06] MEDS: CLINDAMYCIN 600 MG/50 ML PIGGYBACK 50 MG IV (17:51)
[2018-10-06 19:34] VITALS: BP 111/72; PULSE 96; TEMP 36.2; O2SAT 100
--- NOTE | 2018-10-06 19:35 | ED_ITS ---
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 She states this has been there for the past 3 months. She states she came in today because is not going away. She was admitted to the hospital on 08/27 for a similar issue on ?the other side of the chin.She denies any fevers, vomiting or diarrhea. She is eating and drinking well, is eating and drinking in the exam room. She states she came in today not because it is growing, but because it is not going away. She has noted no drainage. She has not applied anything. She states she was discharged from the hospital last month, but did not continue her antibiotic prescription. She states she had tr ouble getting it and had to go to work. Related Data Previous Rx's Medication Instructions Recorded clindamycin HCl 300 mg PO QID #40 cap 10/06/18 Allergies Allergy/AdvReac Type Severity Reaction Status Date / Time buspirone [From BUSPAR] Allergy Unknown Verified 10/06/18 16:21 venlafaxine [From EFFEXOR] Allergy Unknown Verified 10/06/18 16:21 Review of Systems <LESLIE Ross - Last Filed: 10/06/18 19:35> Review of Systems GENERAL: Denies chills, fatigue, malaise, fever, sweats. HEENT: Denies sinus pain, ear pain, sore throat, difficulty swallowing, dizziness. RESPIRATORY: Denies dyspnea, cough, wheezing, hemoptysis, sputum. CARDIOVASCULAR: Denies chest pain, palpitations, orthopnea, edema, GASTROINTESTINAL: Denies nausea, vomiting, abdominal pain, diarrhea, constipation, melena. : Denies dysuria, frequency, incontinence, hematuria, urinary retention. MUSCULOSKELETAL: denies weakness, joint pain, or bony pain SKIN: See HPI NEUROLOGIC: Denies weakness, headache, numbness, change in speech, confusion, seizures, incoordination. PSYCHIATRIC: No concerning psychosocial issues. 12 point review of systems is negative except for those stated above PFSH <LESLIE Ross - Last Filed: 10/06/18 19:35> Medical History 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) Neurofibromatosis (Acute) Family History Grandfather Age: 78 Cancer Hypertension High cholesterol Grandmother Age: 78 Cancer Hypertension Stroke Grandfather Cancer Hypertension Grandmother Cancer Social History household members: friend(s) Smoking Status: Current every day smoker substance use type: former substance user, heroin, IV drugs and methamphetamine Social History household members: friend(s) Smoking Status: Current every day smoker substance use type: former substance user, heroin, IV drugs and methamphetamine Exam <LESLIE Ross - Last Filed: 10/06/18 19:35> Narrative Exam Narrative: GENERAL: This is a well-nourished, well-developed patient, no acute distress HEAD: Atraumatic. Normocephalic. No temporal or scalp tenderness. EYES: Pupils equal round and reactive. Extraocular motions intact. No scleral icterus. No injection or drainage. ENT: Nose without bleeding, purulent drainage or septal hematoma. Throat without erythema, tonsillar hypertrophy or exudate. Uvula midline. Airway patent. See skin exam NECK: Trachea midline. No JVD or lymphadenopathy. Supple, nontender, no meningeal signs. CARDIOVASCULAR: Regular rate and rhythm without murmurs, gallops, or rubs. RESPIRATORY: Clear to auscultation. Breath sounds equal bilaterally. No wheezes, rales, or rhonchi. No cough. No increased respiratory effort. No accessory muscle use. GASTROINTESTINAL: Abdomen soft, non-tender, nondistended. No hepato-sple nomegaly, or palpable masses. No guarding. EXTREMITIES: No clubbing, cyanosis, or edema. No joint tenderness, effusion, or edema noted. BACK: Nontender without deformity or crepitance. No flank tenderness. NEURO: AOx3. SKIN: 2 x 1 cm of erythema noted on bowers with no significant palpable fluctuanc e. Erythema noted, with no extending erythema other than bowers. Does not extend up to cheeks or lips. Does not extend down neck. Initial Vital Signs Initial Vital Signs: Vital Signs Temperature 98.1 F 10/06/18 16:21 Pulse Rate 105 H 10/06/18 16:21 Respiratory Rate 16 10/06/18 16:21 Blood Pressure 111/75 10/06/18 16:21 Pulse Oximetry 100 10/06/18 16:21 <Yvette Wang MD - Last Filed: 10/06/18 20:37> Initial Vital Signs Initial Vital Signs: Vital Signs Temperature 98.1 F 10/06/18 16:21 Pulse Rate 105 H 10/06/18 16:21 Respiratory Rate 16 10/06/18 16:21 Blood Pressure 111/75 10/06/18 16:21 Pulse Oximetry 100 10/06/18 16:21 Course <LESLIE Ross - Last Filed: 10/06/18 19:35> Orders Ordered: ED Orders 10/06/18 16:40 Complete Blood Count AUTO DIFF Stat Comprehensive Metabolic Panel Stat Lactate (Lactic Acid) Stat 10/06/18 17:00 CT facial bones w con Stat Discontinued Medications Sodium Chloride (Normal Saline 0.9%) 1,000 mls @ 1,000 mls/hr IV BOLUS ONE Stop: 10/06/18 17:26 Last Infusion: 10/06/18 18:58 Dose: 0 mls/hr Admin: 10/06/18 16:51 Dose: 1,000 mls/hr Clindamycin Phosphate (Cleocin) 600 mg in 50 mls @ 50 mls/hr IV NOW ONE Stop: 10/06/18 18:43 Last Infusion: 10/06/18 18:57 Dose: 0 mls/hr Admin: 10/06/18 17:51 Dose: 50 mls/hr Ondansetron HCl (Zofran) 4 mg IV NOW ONE Stop: 10/06/18 16:28 Last Admin: 10/06/18 16:50 Dose: 4 mg Vital Signs - 8 hr 10/06/18 16:21 10/06/18 19:34 Temperature 98.1 F 97.2 F L Pulse Rate 105 H 96 H Respiratory Rate 16 Blood Pressure 111/75 111/72 Pulse Oximetry 100 100 <Yvette Wang MD - Last Filed: 10/06/18 20:37> Orders Ordered: ED Orders 10/06/18 16:40 Complete Blood Count AUTO DIFF Stat Comprehensive Metabolic Panel Stat Lactate (Lactic Acid) Stat 10/06/18 17:00 CT facial bones w con Stat Discontinued Medications Sodium Chloride (Normal Saline 0.9%) 1,000 mls @ 1,000 mls/hr IV BOLUS ONE Stop: 10/06/18 17:26 Last Infusion: 10/06/18 18:58 Dose: 0 mls/hr Admin: 10/06/18 16:51 Dose: 1,000 mls/hr Clindamycin Phosphate (Cleocin) 600 mg in 50 mls @ 50 mls/hr IV NOW ONE Stop: 10/06/18 18:43 Last Infusion: 10/06/18 18:57 Dose: 0 mls/hr Admin: 10/06/18 17:51 Dose: 50 mls/hr Ondansetron HCl (Zofran) 4 mg IV NOW ONE Stop: 10/06/18 16:28 Last Admin: 10/06/18 16:50 Dose: 4 mg Vital Signs - 8 hr 10/06/18 16:21 10/06/18 19:34 Temperature 98.1 F 97.2 F L Pulse Rate 105 H 96 H Respiratory Rate 16 Blood Pressure 111/75 111/72 Pulse Oximetry 100 100 MDM - Skin/Abscess/Foreign Bdy <FLO Ross-JASMYNE - Last Filed: 10/06/18 19:35> Lab Data Result diagrams: 10/06/18 16:40 10/06/18 16:40 Lab Results 10/06/18 10/06/18 10/06/18 Range/Units 16:40 16:40 16:40 WBC 8.2 (4.5-11.0) X10^3/uL RBC 5.01 (4.0-5.2) X10^6/uL Hgb 14.9 (12.0-16.0) g/dL Hct 44.0 (36-46) % MCV 87.8 (80-100) fL MCH 29.8 (26-34) PG MCHC 33.9 (30-36) % RDW 13.7 (11.6-14.8) % Plt Count 283 (150-400) X10^3/uL Neut % (Auto) 62.6 (50-75) % Lymph % (Auto) 25.2 (25-40) % [place] % (Auto) 6.7 (3-14) % Eos % (Auto) 4.4 H (2-4) % Baso % (Auto) 1.1 (0-2) % Neut # (Auto) 5200 (3713-6438) /uL Lymph # (Auto) 2100 (9064-7115) /uL [place] # (Auto) 500 (0-900) /uL Eos # (Auto) 400 (0-450) /uL Baso # (Auto) 100 (0-100) /uL Sodium 141 (137-145) mmol/L Potassium 4.0 (3.4-5.1) mmol/L Chloride 99 (98-107) mmol/L Carbon Dioxide 34 H (22-32) mmol/L BUN 11 (7-17) mg/dL Creatinine 0.50 L (0.52-1.04) mg/dL Estimated GFR > 60.0 (>60) mL/min BUN/Creatinine Ratio 22.0 (6-22) Glucose 97 (70-100) mg/dL Lactate 0.9 (0.7-2.1) mmol/L Calcium 9.5 (8.4-10.2) mg/dL Total Bilirubin 0.8 (0.2-1.3) mg/dL AST 134 H (14-36) IU/L ALT 286 H (9-52) IU/L Alkaline Phosphatase 105 (38-126) U/L Total Protein 8.0 (6.3-8.2) g/dL Albumin 4.3 (3.5-5.0) g/dL Globulin 3.7 (1.7-4.1) g/dL Albumin/Globulin Ratio 1.2 (1.0-2.8) Imaging Data Face CT: Radiologist's impression: [address] [address] [address] Scan Report Signed Patient: [facility]#: [id number] : 1980Acct:[id number] Age/Sex: 38 / FDate of Service: 10/06/18 Loc: ED Accession Number: [id number] Procedure: CT facial bones w con Ordering Provider: Rohini Gonzales PROCEDURE: CT FACIAL BONES W CON INDICATIONS: jaw/chin infection TECHNIQUE: After the administration of intravenous contrast, 2.5 mm axial sections acquired from the mid-neck to the frontal sinuses, with coronal and sagittal reformats. For radiation dose reduction, the following was used: automated exposure control, adjustment of mA and/or kV according to patient size. COMPARISON: [facility], CT, CT FACIAL BONES W CON, 08/27/2018, 12:18. FINDINGS: Image quality: Excellent. Soft tissues: Diffuse fat stranding within the soft tissues surrounding the anterior mandible. Within the right inferior mental region, there are 2 adjacent per ipheral enhancing fluid collections measuring 4 mm and 18 mm. Multiple mildly prominent lymph nodes within the upper neck. Vascular: Visualized vascular structures appear patent throughout. Bony vascular foramina and canals appear normal. Bones: Facial bones appear intact, without fractures, erosions, or destruction. Visualized portions of the skull base and auditory canals also appear normal. Sinuses: Paranasal sinuses are aerated without fluid levels, mucosal thickening, or mucoceles. Mastoid air cells are aerated. IMPRESSION: 1. Diffuse cellulitis versus edema. 2. Small abscesses within the right inferior chin. 3. Reactive lymph node enlargement. Dictated by: Tiffanie Aaron M.D. on 10/06/2018 at 17:37 Approved by: Tiffanie Aaron M.D. on 10/06/2018 at 17:40 [facility] Narrative Medical decision making narrative: The patient is a 38-year-old female who presents with a chief complaint of a facial abscess. She does not have a palpable fluctuance on exam, is afebrile does not have an elevated white blood cell count or an elevated lactate. Well in the exam room. Given that she only came in because it was not going away, I feel she is okay for outpatient treatment. She was given IV clindamycin in the emergency department negative discharge her with a prescription of clindamycin. Discussed monitoring for fevers, inability keep down fluids or any acute changes. Encouraged follow-up with primary care provider. Gave patient contact information for the health corporate human resources manager. Patient has no questions or concerns upon discharge. <Yvette Wang MD - Last Filed: 10/06/18 20:37> Lab Data Lab Results 10/06/18 10/06/18 10/06/18 Range/Units 16:40 16:40 16:40 WBC 8.2 (4.5-11.0) X10^3/uL RBC 5.01 (4.0-5.2) X10^6/uL Hgb 14.9 (12.0-16.0) g/dL Hct 44.0 (36-46) % MCV 87.8 (80-100) fL MCH 29.8 (26-34) PG MCHC 33.9 (30-36) % RDW 13.7 (11.6-14.8) % Plt Count 283 (150-400) X10^3/uL Neut % (Auto) 62.6 (50-75) % Lymph % (Auto) 25.2 (25-40) % [place] % (Auto) 6.7 (3-14) % Eos % (Auto) 4.4 H (2-4) % Baso % (Auto) 1.1 (0-2) % Neut # (Auto) 5200 (5469-9989) /uL Lymph # (Auto) 2100 (4080-7026) /uL [place] # (Auto) 500 (0-900) /uL Eos # (Auto) 400 (0-450) /uL Baso # (Auto) 100 (0-100) /uL Sodium 141 (137-145) mmol/L Potassium 4.0 (3.4-5.1) mmol/L Chloride 99 (98-107) mmol/L Carbon Dioxide 34 H (22-32) mmol/L BUN 11 (7-17) mg/dL Creatinine 0.50 L (0.52-1.04) mg/dL Estimated GFR > 60.0 (>60) mL/min BUN/Creatinine Ratio 22.0 (6-22) Glucose 97 (70-100) mg/dL Lactate 0.9 (0.7-2.1) mmol/L Calcium 9.5 (8.4-10.2) mg/dL Total Bilirubin 0.8 (0.2-1.3) mg/dL AST 134 H (14-36) IU/L ALT 286 H (9-52) IU/L Alkaline Phosphatase 105 (38-126) U/L Total Protein 8.0 (6.3-8.2) g/dL Albumin 4.3 (3.5-5.0) g/dL Globulin 3.7 (1.7-4.1) g/dL Albumin/Globulin Ratio 1.2 (1.0-2.8) Discharge Plan Departure Patient Disposition: Home Clinical Impression: Cellulitis of face Abscess of skin or subcutaneous tissue Qualifiers: Site of cutaneous abscess: face Qualified Code(s): L02.01 - Cutaneous abscess of face Discharge Date/Time: 10/06/18 19:34 Interventions: ED Discharge Assessment Last Done: 10/06/18 19:34 Instructions: DI for Cellulitis -- Adult Activity Restrictions/Additional Instructions: I have prescribed you an antibiotic. Please take probiotics or yogurt with it. Please monitor for spreading, fevers or inability keep down fluids.. Please use warm packs to your face to help it drain. Please come back to the emergency department for any acute concerns such as inability keep down fluids, high fevers etc. Please follow up with primary care provider. I have given you contact information for [facility] corporate human resources manager, who can help you identify one Prescriptions: New clindamycin HCl 300 mg capsule 300 mg PO QID Qty: 40 RF: 0 Referrals: [facility] [Outside]
== END 2018-10-06 19:34 | disposition home or self-care (01) ==
PROVIDERS: Emergency Provider Nurse Practitioner Family
DX: L02.01 Cutaneous abscess of face (principal)
CPT/HCPCS: 36591; 70487; 80053; 83605; 85025; 96361; 96365; 96375; 99283; 99284; J2405; Q9967

== ENCOUNTER 2018-12-20 22:43 | Emergency (ER) | payer OTHER, MEDICAID, SELFPAY ==
[2018-12-20 22:51] VITALS: BP 114/83; PULSE 135; RESP 14; TEMP 36.9; O2SAT 100; BMI 23.1
[2018-12-21] MEDS: ONDANSETRON 4 MG ODT SL (00:08)
--- NOTE | 2018-12-21 00:11 | PC.NURSE ---
Pt taking PO fluids, provider DCd IV and NS bolus
--- NOTE | 2018-12-21 00:12 | PC.NURSE ---
Pt requesting detox, states last time she used was friday morning. States she cannot remember when she started using. She is calm and cooperative.
[2018-12-21 00:22] LABS: Add Manual Diff / Slide Review NO; Basophils Absolute Auto 0 /uL (0-100); Basophils Percent Auto 0.2 % (0-2); Eosinophils Absolute Auto 100 /uL (0-450); Eosinophils Percent Auto 0.3 % (2-4); Hematocrit 44.7 % (36-46); Hemoglobin 15.4 g/dL (12.0-16.0); Lymphocytes Absolute Auto 400 /uL (1100-4500); Lymphocytes Percent Auto 1.7 % (25-40); Mean Corpuscular HGB Conc 34.4 % (30-36); Mean Corpuscular Hemoglobin 29.8 PG (26-34); Mean Corpuscular Volume 86.6 fL (80-100); Monocytes Absolute Auto 400 /uL (0-900); Monocytes Percent Auto 1.9 % (3-14); Neutrophils Absolute Auto 20500 /uL (1500-7000); Neutrophils Percent Auto 95.9 % (50-75); Platelet Count 186 X10^3/uL (150-400); Red Blood Cell Count 5.16 X10^6/uL (4.0-5.2); Red Cell Distribution Width 13.6 % (11.6-14.8); White Blood Cell Count 21.3 X10^3/uL (4.5-11.0)
[2018-12-21 00:29] LABS: Ethanol (ETOH) < 10 mg/dL
[2018-12-21 00:30] LABS: Alanine Aminotransferase 204 IU/L (9-52); Albumin 3.4 g/dL (3.5-5.0); Alkaline Phosphatase 129 U/L (38-126); Aspartate Aminotransferase 143 IU/L (14-36); Bilirubin Total 1.1 mg/dL (0.2-1.3); Blood Urea Nitrogen 22 mg/dL (7-17); Calcium 9.5 mg/dL (8.4-10.2); Carbon Dioxide 25 mmol/L (22-32); Chloride 101 mmol/L (98-107); Estimated Glomerular Filt Rate > 60.0 mL/min (>60); Globulin 3.4 g/dL (1.7-4.1); Glucose 131 mg/dL (70-100); HEMOLYSIS < 15 (0-50); Potassium 4.3 mmol/L (3.4-5.1); Sodium 135 mmol/L (137-145); Total Protein 6.8 g/dL (6.3-8.2)
[2018-12-21 01:05] VITALS: BP 99/58; PULSE 110; RESP 18; O2SAT 99
--- NOTE | 2018-12-21 01:05 | ED.OVERDOSE ---
HPI - Overdose General Chief Complaint: Toxicology Problem Stated Complaint: Opiate withdrawls Time Seen by Provider: 12/20/18 23:58 Source: patient Mode of arrival: ambulatory Limitations: no limitations History of Present Illness HPI Narrative: Patient comes emergency department complaining of withdrawing from heroin. She states she has been a daily user for very long time, but her last use was yesterday morning. She has had vomiting and headache since. No fevers or chills. No cough or fever. Patient states that she would like to get help though she is not sure what kind. Related Data Previous Rx's Medication Instructions Recorded clindamycin HCl 300 mg PO QID #40 cap 10/06/18 clonidine HCl 0.1 mg PO TID #20 tab 12/21/18 ondansetron 4 mg PO Q6H PRN #20 tab 12/21/18 Allergies Allergy/AdvReac Type Severity Reaction Status Date / Time buspirone [From BUSPAR] Allergy Unknown Verified 10/06/18 16:21 venlafaxine [From EFFEXOR] Allergy Unknown Verified 10/06/18 16:21 Review of Systems Review of Systems ROS Unobtainable: All systems reviewed & are unremarkable except as noted in HPI and below Constitutional Constitutional: Denies chills, Denies fatigue, Denies fever(s), Denies frequent falls, Reports headache(s), Denies lethargy and Denies weakness Eyes Eyes: Denies change in vision, Denies eye discharge, Denies irritation and Denies loss of vision ENT Ears, Nose, Mouth, and Throat: Denies change in voice, Denies dizziness, Reports headache(s), Denies neck pain, Denies sore throat and Denies throat swelling Cardiovascular Cardiovascular: Denies chest pain, Denies irregular heart rhythm, Denies lightheadedness, Denies palpitations, Denies dyspnea, Denies dyspnea on exertion and Denies orthopnea Respiratory Respiratory: Denies cough, Denies dyspnea, Denies dyspnea on exertion and Denies wheezing Gastrointestinal Gastrointestinal: Denies abdominal pain, Denies change in bowel habits, Denies diarrhea, Denies nausea and Denies vomiting Genitourinary Genitourinary: Denies hematuria, Denies flank pain, Denies urinary incontinence and Denies urinary urgency Musculoskeletal Musculoskeletal: Denies back pain, Denies muscle weakness, Denies neck pain, Denies numbness and Denies tingling Integumentary/Breasts Skin/Breast: Denies pruritus, Denies erythema, Denies rash and Denies wounds Neurologic Neurologic: Denies behavioral changes, Denies confusion, Denies dizziness, Denies frequent falls, Reports headache(s), Denies loss of vision, Denies numbness, Denies tingling and Denies weakness Psychiatric Psychiatric: Denies anxiety, Denies behavioral changes, Denies confusion, Denies depression, Denies homicidal ideation and Denies suicidal ideation Endocrine Endocrine: Denies fatigue, Denies flushing and Denies palpitations Hematologic/Lymphatic Hematologic/Lymphatic: Denies easy bruising Allergic/Immunologic Allergic/Immunologic: Denies urticaria, Denies throat swelling and Denies wheezing [facility] Medical History 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) Neurofibromatosis (Acute) Family History Grandfather Age: 79 Cancer Hypertension High cholesterol Grandmother Age: 79 Cancer Hypertension Stroke Grandfather Cancer Hypertension Grandmother Cancer Social History household members: friend(s) Smoking Status: Current every day smoker substance use type: former substance user, heroin, IV drugs and methamphetamine Family History Grandfather Age: 79 Cancer Hypertension High cholesterol Grandmother Age: 79 Cancer Hypertension Stroke Grandfather Cancer Hypertension Grandmother Cancer Social History household members: friend(s) Smoking Status: Current every day smoker substance use type: former substance user, heroin, IV drugs and methamphetamine Exam Initial Vital Signs Initial Vital Signs: Vital Signs Temperature 98.4 F 12/20/18 22:51 Pulse Rate 135 H 12/20/18 22:51 Respiratory Rate 14 12/20/18 22:51 Blood Pressure 114/83 12/20/18 22:51 Pulse Oximetry 100 12/20/18 22:51 Const General: cooperative and well developed Nutritional Appearance: well nourished Orientation: alert, awake, oriented x3 and not confused HENKS Head: normocephalic and atraumatic Ears: external ears normal Nose: external nose normal and No nasal discharge Face and sinus: face symmetric and No dry mucous membranes Mouth: oral mucosae normal and moist mucous membranes Teeth and gingiva: dentition normal Eyes General: appearance normal, both eyes and all related structures Eyelids: eyelids normal Conjunctivae: conjunctivae normal Sclera: sclerae normal Pupils: PERRL EOM: EOM intact bilaterally Neck Neck: normal visual inspection, trachea midline, No lymphadenopathy, No midline deformity and No JVD Lymphatic: No lymphedema Chest Chest: normal inspection of the chest Resp Effort & Inspection: normal respiratory effort, able to speak in complete sentences, no respiratory distress and no use of accessory muscles Auscultation: clear to auscultation bilaterally, no rales, no rhonchi and no wheezes Cardio Rate: regular rate Rhythm: regular rhythm Heart Sounds: no click, no gallops, no murmurs and no rubs Pulses: normal peripheral pulses GI Inspection: non-distended Palpation: soft, no hepatosplenomegaly, No guarding, No pulsatile mass and No tender Auscultation: normal bowel sounds Back/Spine/Pelvis Back: No CVA tenderness Cervical Spine: cervical ROM normal and No pain with cervical ROM Thoracic/Lumbar Spine: thoracic and lumbar spine normal to inspection Skin General: no rashes or lesions noted, No jaundice and No petechiae Neuro General: alert, oriented x3, gait normal and no focal motor deficits Speech: speech normal Extrem General: full ROM, no clubbing, cyanosis or edema, no pedal edema and no calf tenderness Psych Appearance: well kempt Mental Status: mental status grossly normal Attitude: cooperative Thought Content: normal and suicidality Judgment: judgment good Course Course Course Narrative: The patient was treated with ODT Zofran, and was found to be feeling much better. Original plan was to treat her with clonidine for withdrawals, but the patient's systolic blood pressure was just under 100. Given her small size and already borderline blood pressure, I did not want to drop her blood pressure or with emergently or urgently with clonidine. Additionally, the patient appeared fairly comfortable, and I did not feel she needed clonidine. The patient has specified during her 1st conversation that she preferred outpatient treatment not in patient. However, when I did prepare discharge papers as she and I had discussed, with prescriptions for Zofran and clonidine, the patient became upset and stated we had not done anything for her and she did not want to go home. She stated she would prefer inpatient treatment. At this point, clearance labs were initiated. Pt was accepted by [facility], and was sent there by cab. Orders Ordered: Discontinued Medications Clonidine HCl (Catapres) 0.2 mg PO NOW ONE Stop: 12/21/18 00:59 Last Admin: 12/21/18 02:15 Dose: Not Given Documented by: ROSALIE Clonidine HCl (Catapres) 0.1 mg PO NOW ONE Stop: 12/21/18 02:01 Last Admin: 12/21/18 02:05 Dose: Not Given Documented by: ROSALIE Sodium Chloride (Normal Saline 0.9%) 1,000 mls @ 1,000 mls/hr IV BOLUS ONE Stop: 12/21/18 00:58 Last Admin: 12/21/18 02:16 Dose: Not Given Documented by: ROSALIE Ondansetron HCl (Zofran Odt) 4 mg SL NOW ONE Stop: 12/21/18 00:00 Last Admin: 12/21/18 00:08 Dose: 4 mg Documented by: ROSALIE Vital Signs Vital signs: Vital Signs - 8 hr 12/20/18 22:51 12/21/18 01:05 12/21/18 02:09 Temperature 98.4 F Pulse Rate 135 H 110 H 107 H Respiratory Rate 14 18 Blood Pressure 114/83 Blood Pressure [Right Arm] 99/58 L 97/60 Pulse Oximetry 100 99 12/21/18 02:15 Temperature Pulse Rate 107 H Respiratory Rate Blood Pressure 97/60 Blood Pressure [Right Arm] Pulse Oximetry MDM - Overdose Medical Records Attestation: I reviewed the patient's medical records. Lab Data Attestation: I reviewed the patient's lab results. Result diagrams: 12/21/18 00:08 12/21/18 00:08 Labs: Lab Results 12/21/18 12/21/18 12/21/18 Range/Units 00:08 00:08 00:08 WBC 21.3 H (4.5-11.0) X10^3/uL RBC 5.16 (4.0-5.2) X10^6/uL Hgb 15.4 (12.0-16.0) g/dL Hct 44.7 (36-46) % MCV 86.6 (80-100) fL MCH 29.8 (26-34) PG MCHC 34.4 (30-36) % RDW 13.6 (11.6-14.8) % Plt Count 186 (150-400) X10^3/uL Neut % (Auto) 95.9 H (50-75) % Lymph % (Auto) 1.7 L (25-40) % Loving % (Auto) 1.9 L (3-14) % Eos % (Auto) 0.3 L (2-4) % Baso % (Auto) 0.2 (0-2) % Neut # (Auto) 87389 H (7470-9620) /uL Lymph # (Auto) 400 L (9882-4386) /uL Loving # (Auto) 400 (0-900) /uL Eos # (Auto) 100 (0-450) /uL Baso # (Auto) 0 (0-100) /uL Sodium 135 L (137-145) mmol/L Potassium 4.3 (3.4-5.1) mmol/L Chloride 101 (98-107) mmol/L Carbon Dioxide 25 (22-32) mmol/L BUN 22 H (7-17) mg/dL Creatinine 1.00 (0.52-1.04) mg/dL Estimated GFR > 60.0 (>60) mL/min BUN/Creatinine Ratio 22.0 (6-22) Glucose 131 H (70-100) mg/dL Calcium 9.5 (8.4-10.2) mg/dL Total Bilirubin 1.1 (0.2-1.3) mg/dL AST 143 H (14-36) IU/L ALT 204 H (9-52) IU/L Alkaline Phosphatase 129 H (38-126) U/L Total Protein 6.8 (6.3-8.2) g/dL Albumin 3.4 L (3.5-5.0) g/dL Globulin 3.4 (1.7-4.1) g/dL Albumin/Globulin Ratio 1.0 (1.0-2.8) Urine Test (Negative) Urine Opiates Screen (Negative) Ur Oxycodone Screen (Negative) Urine Methadone Screen (Negative) Ur Barbiturates Screen (Negative) U Tricyclic Antidepress (Negative) Ur Phencyclidine Scrn (Negative) Ur Amphetamines Screen (Negative) U Methamphetamines Scrn (Negative) Ur MDMA Scrn (Ecstasy) (Negative) U Benzodiazepines Scrn (Negative) Urine Cocaine Screen (Negative) U Marijuana (THC) Screen (Negative) Ethyl Alcohol < 10 ( - 10) mg/dL 12/21/18 12/21/18 Range/Units 03:05 03:05 WBC (4.5-11.0) X10^3/uL RBC (4.0-5.2) X10^6/uL Hgb (12.0-16.0) g/dL Hct (36-46) % MCV (80-100) fL MCH (26-34) PG MCHC (30-36) % RDW (11.6-14.8) % Plt Count (150-400) X10^3/uL Neut % (Auto) (50-75) % Lymph % (Auto) (25-40) % Loving % (Auto) (3-14) % Eos % (Auto) (2-4) % Baso % (Auto) (0-2) % Neut # (Auto) (2841-9852) /uL Lymph # (Auto) (7011-3555) /uL Loving # (Auto) (0-900) /uL Eos # (Auto) (0-450) /uL Baso # (Auto) (0-100) /uL Sodium (137-145) mmol/L Potassium (3.4-5.1) mmol/L Chloride (98-107) mmol/L Carbon Dioxide (22-32) mmol/L BUN (7-17) mg/dL Creatinine (0.52-1.04) mg/dL Estimated GFR (>60) mL/min BUN/Creatinine Ratio (6-22) Glucose (70-100) mg/dL Calcium (8.4-10.2) mg/dL Total Bilirubin (0.2-1.3) mg/dL AST (14-36) IU/L ALT (9-52) IU/L Alkaline Phosphatase (38-126) U/L Total Protein (6.3-8.2) g/dL Albumin (3.5-5.0) g/dL Globulin (1.7-4.1) g/dL Albumin/Globulin Ratio (1.0-2.8) Urine Test Negative (Negative) Urine Opiates Screen Positive H (Negative) Ur Oxycodone Screen Positive H (Negative) Urine Methadone Screen Negative (Negative) Ur Barbiturates Screen Negative (Negative) U Tricyclic Antidepress Negative (Negative) Ur Phencyclidine Scrn Negative (Negative) Ur Amphetamines Screen Positive H (Negative) U Methamphetamines Scrn Positive H (Negative) Ur MDMA Scrn (Ecstasy) Negative (Negative) U Benzodiazepines Scrn Negative (Negative) Urine Cocaine Screen Negative (Negative) U Marijuana (THC) Screen Positive H (Negative) Ethyl Alcohol ( - 10) mg/dL Discharge Plan Departure Patient Disposition: Home Clinical Impression: Opiate withdrawal Discharge Date/Time: 12/21/18 07:24 Instructions: DI for Opioid Addiction Activity Restrictions/Additional Instructions: Please use the clonidine and the Zofran as needed for symptomatic relief. Please seek help with your addiction through the resources provided. Prescriptions: New clonidine HCl 0.1 mg tablet 0.1 mg PO TID Qty: 20 RF: 0 ondansetron 4 mg tablet,disintegrating 4 mg PO Q6H PRN (Reason: nausea and vomiting) Qty: 20 RF: 0 No Action clindamycin HCl 300 mg capsule 300 mg PO QID Qty: 40 RF: 0 Referrals: [facility] [Provider Group]
[2018-12-21 02:09] VITALS: BP 97/60; PULSE 107
[2018-12-21 02:15] VITALS: BP 97/60; PULSE 107
--- NOTE | 2018-12-21 02:30 | PC.NURSE ---
pt up for discharge by provider. Went into room to discharge pt with resources per conversation with provider. Pt stated we have done nothing to help her and she doesnt understand why we cant give her something to help detox. It was explained that we are connecting her with resources. She has now asked for inpatinet detox. Per previous conversation where pt stated she has not heard of [facility]. Now she states she did not like [facility] because they didn't give her any subs. When asked what subs means she stated suboxone She stated she left [facility] last time because she had to do everything myself and they wernt helping. She states she left before she got any scripts for anything. She agreed to have the process started for inpatient placment to [facility]. Addtionally she has agreed to stay till the morning if [facility] can not take her to speak with social work in the morning.
--- NOTE | 2018-12-21 03:02 | PC.NURSE ---
Pt continues to refuse IV. Pt attempting to give urine sample. Initially she stated she is not able to urinate due to no fluid intake. She has been taking PO fluids while in the ed this visit. Pt just exited restroom and has a urine sample now. Pt continues to take po fluids. A second glass of water provided. Pt has taken 1 glass of water and 1 ted sharon at this time. Pt returned to [facility] and denies further needs at this time.
[2018-12-21 03:19] LABS: Urine Tetrahydrocannabinol Positive (Negative)
[2018-12-21 03:20] LABS: Urine Amphetamines Positive (Negative); Urine Barbiturates Negative (Negative); Urine Benzodiazepines Negative (Negative); Urine Cocaine Negative (Negative); Urine MDMA Negative (Negative); Urine Methadone Negative (Negative); Urine Methamphetamines Positive (Negative); Urine Morphine/Opi cutoff 2000 Positive (Negative); Urine Oxycodone Positive (Negative); Urine Phencyclidine Negative (Negative); Urine Tricyclic Antidepressant Negative (Negative)
[2018-12-21 04:05] LABS: Pregnancy Test Urine Negative (Negative)
--- NOTE | 2018-12-21 04:30 | PC.NURSE ---
Pt connected with talya at [facility] for phone interview.
--- NOTE | 2018-12-21 04:41 | PC.NURSE ---
Fadia at [facility] detox accepts patient and asks for her to arrive between 8 and 9am. Pt provided a sandwich and gingerale. Denies further needs at this time.
[2018-12-21 04:54] VITALS: BP 112/75; PULSE 92; RESP 18; O2SAT 98
[2018-12-21 07:11] VITALS: BP 112/78; PULSE 82; RESP 16; O2SAT 97
--- NOTE | 2018-12-21 10:58 | PC.NURSE ---
Prescriptions for clonidine and zofran called into [facility] in [place] as initially sent to [facility] and pt is at [facility].
--- NOTE | 2018-12-21 12:03 | PC.NURSE ---
Pt called stating that prescriptions had not gone through. Called [facility] and spoke to pharmacist, called in scripts again.
== END 2018-12-21 07:24 | disposition home or self-care (01) ==
PROVIDERS: Emergency Provider Emergency Medicine
DX: F11.23 Opioid dependence with withdrawal (principal)
CPT/HCPCS: 36415; 80053; 80305; 80320; 81025; 85025; 99283

== ENCOUNTER 2019-12-10 20:41 | Emergency (ER) | payer MEDICAID, SELFPAY ==
[2019-12-10 21:01] VITALS: BP 110/73; PULSE 84; RESP 18; TEMP 37.1; O2SAT 100; BMI 23.1
--- NOTE | 2019-12-10 21:13 | ED.EXTPRO ---
HPI - Extremity Problem General Chief complaint: Extremity Problem,Nontraumatic Stated complaint: abscess right arm Time Seen by Provider: 12/10/19 21:06 Source: patient Mode of arrival: Ambulatory Limitations: no limitations History of Present Illness HPI Narrative: 39-year-old female here for an abscess on her right arm. She states that it is in an area where she previously injected herself with heroin. Has had abscesses in the past. No fevers. Has not tried anything for the symptoms prior to arrival Related Data Previous Rx's Medication Instructions Recorded clindamycin HCl 300 mg PO QID #40 cap 10/06/18 clonidine HCl 0.1 mg PO TID #20 tab 12/21/18 ondansetron 4 mg PO Q6H PRN #20 tab 12/21/18 doxycycline hyclate 100 mg PO BID 7 Days #14 tab 12/10/19 Allergies Allergy/AdvReac Type Severity Reaction Status Date / Time buspirone [From BUSPAR] Allergy Unknown Verified 12/10/19 21:17 venlafaxine [From EFFEXOR] Allergy Unknown Verified 12/10/19 21:17 Review of Systems Constitutional Constitutional: Denies fever(s) Musculoskeletal Musculoskeletal: Denies arthralgias and Denies myalgias Integumentary/Breasts Comments: Redness and swelling right forearm Neurologic Neurologic: Denies behavioral changes Psychiatric Psychiatric: Denies behavioral changes Patient History Medical History (Updated 12/10/19 @ 21:29 by Fantasma Portillo DO) 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) Neurofibromatosis (Acute) Family History Grandfather Age: 80 Cancer Hypertension High cholesterol Grandmother Age: 80 Cancer Hypertension Stroke Grandfather Cancer Hypertension Grandmother Cancer Social History household members: friend(s) Smoking Status: Current every day smoker substance use type: former substance user, heroin, IV drugs and methamphetamine Smoking Status: Current every day smoker alcohol intake frequency: 0-2 drinks per day Substance Use Type: heroin and amphetamines Exam Initial Vital Signs Initial Vital Signs: Vital Signs Temperature 98.8 F 12/10/19 21:01 Pulse Rate 84 12/10/19 21:01 Respiratory Rate 18 12/10/19 21:01 Blood Pressure 110/73 08/28/20 21:01 Pulse Oximetry 100 12/10/19 21:01 Const General: cooperative and comfortable Skin Other: Patient with a 3 cm x 2 cm abscess on the ulnar aspect approximately [address] her right forearm. Minimal surrounding erythema. Neuro Sensory Exam: no sensory deficits noted Extrem Other: Full range of motion right elbow and right wrist Procedures Abscess I/D I&D #1: Site: upper extremity Side (if applicable): right Local Anesthetic: lidocaine 1% and with bicarb Amount of anesthesia used (mL): 3 Technique: incised with #11 blade Irrigation: No Packing used?: none Course Orders Ordered: Discontinued Medications Doxycycline Hyclate (Vibramycin) 100 mg PO NOW ONE Stop: 12/10/19 21:28 Last Admin: 12/10/19 21:34 Dose: 100 mg Documented by: LIZZIE Ibuprofen (Advil) 800 mg PO NOW ONE Stop: 12/10/19 21:28 Last Admin: 12/10/19 21:37 Dose: 800 mg Documented by: LIZZIE Lidocaine/Sodium Bicarbonate (Buffered Lidocaine 10 Ml Syr) 10 ml INJ NOW ONE Stop: 12/10/19 21:14 Last Admin: 12/10/19 21:20 Dose: 10 ml Documented by: LIZZIE Vital Signs Vital signs: Vital Signs - 8 hr 12/10/19 21:01 12/10/19 21:39 Temperature 98.8 F 98.8 F Pulse Rate 84 89 Respiratory Rate 18 16 Blood Pressure 110/73 110/70 Pulse Oximetry 100 99 MDM - Extremity (Nontraumatic) MDM Narrative Medical decision making narrative: Nontoxic appearing. Patient states she has been clean for 2 weeks. Abscess in her right forearm was drained as described above. Given the nature of the wound will start her on antibiotics she was given 1st dose here. Prescription for the remainder. She was given return precautions and care instructions. She expressed understanding and agreement. Discharge Plan Departure Patient Disposition: Home Clinical Impression: Abscess Discharge Date/Time: 12/10/19 21:41 Instructions: DI for Incision and Drainage of a Skin Abscess Activity Restrictions/Additional Instructions: Continue to take ibuprofen for any discomfort. Start taking the antibiotics as directed. Contact your primary provider for follow-up. Return to the emergency department for any new or worsening symptoms Prescriptions: New doxycycline hyclate 100 mg tablet 100 mg PO BID 7 Days Qty: 14 RF: 0 No Action clindamycin HCl 300 mg capsule 300 mg PO QID Qty: 40 RF: 0 clonidine HCl 0.1 mg tablet 0.1 mg PO TID Qty: 20 RF: 0 ondansetron 4 mg tablet,disintegrating 4 mg PO Q6H PRN (Reason: nausea and vomiting) Qty: 20 RF: 0
[2019-12-10] MEDS: LIDO 1%/SOD BICARB 8.4% (10ML) 10 ML SYRINGE INJ (21:20)
[2019-12-10] MEDS: DOXYCYCLINE HYCLATE 100 MG TABLET PO (21:34)
[2019-12-10] MEDS: IBUPROFEN 400 MG TABLET 800 MG PO (21:37)
[2019-12-10 21:39] VITALS: BP 110/70; PULSE 89; RESP 16; TEMP 37.1; O2SAT 99
== END 2019-12-10 21:41 | disposition home or self-care (01) ==
PROVIDERS: Emergency Provider Emergency Medicine
DX: L02.413 Cutaneous abscess of right upper limb (principal)
CPT/HCPCS: 10060; 99283